=== PATIENT | male | born 1965 | race Caucasian/White ===

== ENCOUNTER 2020-11-29 10:00 | Outpatient (REF) | payer OTHER, SELFPAY | END 2020-11-29 10:01 | disposition home or self-care (01) | LOC: HO.LAB 10:00 | PROVIDERS: Visit Provider Internal Medicine | DX: Z20.828 Contact with and (suspected) exposure to other viral communicable diseases (principal) | CPT/HCPCS: 36415; C9803; U0003 ==

== ENCOUNTER 2023-03-03 16:46 | Emergency (ER) | payer OTHER, SELFPAY ==
--- NOTE | ~2023-03-03 | CT_ITS ---
EXAMINATION: CT CHEST, ABDOMEN AND PELVIS WITHOUT CONTRAST CLINICAL INFORMATION: Trauma. COMPARISON: None. TECHNIQUE: Multidetector volumetric CT imaging of the chest, abdomen and pelvis was obtained without oral or intravenous contrast. Coronal and sagittal reformatted images are performed at CT scanner [This CT examination was performed using dose optimization techniques as appropriate, variously including the following: *Automated exposure control *Adjustment of mA and/or kV according to patient size (this includes techniques or standardized protocols for targeted exams where dose is matched to indication/reason for exam; i.e. extremities or head) *Use of iterative reconstruction technique] DLP: 7.31+183.89+368.22 mGy-cm. FINDINGS: CT CHEST: Lungs: Marked centrilobular and mild paraseptal emphysematous change of lungs. No acute airspace disease. No interstitial lung disease. No suspicious lung nodule. Mediastinum: No mediastinal hematoma or fluid collection. No pericardial effusion. Heart size is normal. Small volume of coronary calcification. Small volume of calcifications of thoracic aorta and arch. No aneurysm of aorta. No mediastinal mass or significant lymphadenopathy. Thyroid is unremarkable Pleura: There is no pleural effusion. No pleural mass or thickening. Axilla: No lymphadenopathy. CT ABDOMEN AND PELVIS: Liver, Gallbladder and Biliary Tree: Mild low-attenuation of liver parenchyma suggesting fatty change. No focal liver lesion or intrahepatic bile duct dilatation. The gallbladder is unremarkable with no evidence of radiopaque gallstones, gallbladder wall thickening, or obvious pericholecystic inflammatory changes. Pancreas: No acute change of the pancreas. No mass. No pancreatic duct dilatation. Spleen: Spleen normal in size and contour. No focal lesion. Adrenal Glands: Adrenal glands are normal in size. No focal mass. Kidneys and Ureters: The kidneys are normal in size, shape, and attenuation. No hydronephrosis, hydroureter, or calculi seen. No perinephric stranding. Bladder: Unremarkable. Gastrointestinal Tract: The small and large bowel are unremarkable. The appendix is unremarkable. Mesentery: No focal inflammation. No free fluid. No free air. Abdominal Wall: No significant hernia is appreciated. Lymph Nodes: Normal. Vascular: Unremarkable. Pelvic Viscera: Unremarkable. Osseous Structures: No acute osseous abnormality. Mild multilevel degenerative spondylosis of the spine CT/CT abdomen pelvis wo IV con IMPRESSION: CT CHEST: No acute abnormality. Emphysematous change of lungs. CT ABDOMEN PELVIS: No acute abnormality the abdomen or pelvis.
--- NOTE | ~2023-03-03 | CT_ITS ---
EXAMINATION: CT HEAD WITHOUT CONTRAST CT CERVICAL SPINE WITHOUT CONTRAST CLINICAL INFORMATION: Altered mental status. Neck pain. Fall. EtOH. COMPARISON: None available. TECHNIQUE: Contiguous axial imaging was performed from the skull base to vertex without intravenous administration of contrast. Contiguous axial imaging was performed from the upper chest through the skull base without intravenous administration of contrast. Coronal and sagittal reformats were obtained at the acquisition workstation. This CT examination was performed using dose optimization techniques as appropriate, variously including the following: *Automated exposure control. *Adjustment of mA and/or kV according to patient size (this includes techniques or standardized protocols for targeted exams where dose is matched to indication/reason for exam; i.e. extremities or head). *Use of iterative reconstruction technique. DLP: 1083 mGy-cm FINDINGS: Head: There is no evidence of acute intracranial hemorrhage or edematous territorial infarction. Friend-white matter differentiation is preserved. There is no abnormal attenuation within the brain parenchyma. The ventricles are normal in morphology and size. No evidence for obstructive hydrocephalus. No abnormal mass effect or midline shift. No extra-axial fluid collections. Potential minimally displaced right nasal bone fracture. No additional acute soft tissue or osseous abnormalities. There is a 2.3 cm inclusion cyst along the posterior skull. Mild mucosal thickening of the paranasal sinuses. The mastoid air cells and middle ear cavities are clear. Cervical Spine: The atlantooccipital and atlantoaxial articulations remain well aligned. Straightening of the normal cervical lordosis. Otherwise, there is anatomic alignment of the vertebral bodies and posterior elements. No evidence of acute fracture or subluxation. The vertebral body heights are maintained. Moderate degenerative disc disease from C3-C7. Mild degenerative disc disease at C7-T1. Facet and uncovertebral joint arthropathy leads osseous encroachment on the neural foramina from C3-T1. There is no prevertebral soft tissue swelling. The thyroid gland and remaining cervical soft tissues are within normal limits. Moderate centrilobular emphysema visualized in the lung apices. CT/CT cervical spine wo IV con IMPRESSION: 1. No evidence of acute intracranial hemorrhage or edematous territorial infarction. 2. No evidence of acute fracture or traumatic subluxation of the cervical spine. 3. Potential minimally displaced right nasal bone fracture. Recommend correlation with point tenderness. 4. Moderate multilevel degenerative spondyloarthropathy of the cervical spine. 5. Emphysema.
[2023-03-03 16:49] VITALS: BP 149/105; PULSE 143; RESP 18; O2SAT 94; BMI 19.3
[2023-03-03 16:56] VITALS: TEMP 36.8
[2023-03-03 17:07] LABS: MANUAL DIFF FLAG NO
--- NOTE | 2023-03-03 17:07 | PC.NURSE ---
pt reporting SI, drink self to . Pt cooperative with care at this time
[2023-03-03 17:08] LABS: Basophils Absolute Auto 0.1 X10*3/uL (0.0-0.2); Basophils Percent Auto 0.5 % (0-2); Eosinophils Absolute Auto 0.1 X10*3/uL (0.0-0.4); Eosinophils Percent Auto 0.6 % (0-4); Hematocrit 40.9 % (42.0-52.0); Hemoglobin 14.3 g/dl (14.0-18.0); Imm Gran Abs Auto 0.02 X10*3/uL (0.00-0.03); Imm Gran Pct Auto 0.2 % (0.0-0.4); Mean Corpuscular Hemoglobin 31.8 pg (27.0-33.0); Mean Corpuscular Volume 90.9 fL (80.0-98.0); Monocytes Absolute Auto 0.6 X10*3/uL (0.1-1.2); Monocytes Percent Auto 5.9 % (2-11); Neutrophils Absolute Auto 5.9 x10*3/uL (2.0-8.3); Neutrophils Percent Auto 61.8 % (45-73); Platelet Count 270 X10*3/uL (160-400); Red Cell Distribution Width 12.8 % (11.0-16.0); White Blood Count 9.5 X10*3/uL (4.8-10.8)
--- NOTE | 2023-03-03 17:20 | ED_ITS ---
HPI - Alcohol General Chief Complaint: ETOH/Substance Use Stated Complaint: ETOH Time Seen by Provider: 03/03/23 16:48 Source: patient Mode of arrival: ambulatory Limitations: other (Patient extremely intoxicated) History of Present Illness HPI narrative: This is a 57-year-old male presenting to the emergency department with acute alcohol intoxication patient was brought in by his manager distribution center who found patient at home very intoxicated. According to report obtained from a friend patient was recently in detox, patient states he was drinking a lot today and he states he was drinking vodka at 1 point he mention to nursing staff he drink a pt. He is screaming I want to , not answering any questions appropriately. He appears altered. Related Data Previous Rx's Medication Instructions Recorded oxycodone 5 mg tablet 5 mg PO ONCE PRN pain 7 days #7 04/01/22 tabs cephalexin 500 mg capsule 500 mg PO TID #30 caps 06/11/22 meloxicam 15 mg tablet 15 mg PO DAILY #14 tabs 06/11/22 Allergies Allergy/AdvReac Type Severity Reaction Status Date / Time No Known Allergies Allergy Verified 06/11/22 15:49 Review of Systems Review of Systems: Yes Unobtainable due to mental status PMFSH Past Medical History Attestation statement: The following information was validated with the patient. Source: old records reviewed and nursing notes reviewed Social History Social History Alcohol intake: current Alcohol intake frequency: 3 or more drinks per day Alcohol type: hard liquor Smoked in Last 30 Days: Yes Use of substances other than those prescribed or required for medical reasons: Yes Substance Use Type: Crack/Cocaine and Heroin Physical Exam ED Vital Signs: Vital Signs - 24 hr 03/03/23 16:49 03/03/23 16:56 03/03/23 17:43 Temperature 98.3 F 98.0 F Pulse Rate 143 H 120 H Respiratory Rate 18 20 Blood Pressure 149/105 H 128/82 Pulse Oximetry 94 95 Oxygen Delivery Method Room Air Room Air BMI result Body Mass Index 19.3 Vital signs significant for hypertension and tachycardia likely secondary to agitation and/or intoxication Appearance: Patient awake, moving all extremities. Not oriented to person, place time or situation No acute distress.? Head: Normocephalic, atraumatic, no step-offs or deformities Eyes: Pupils equal, round and reactive to light.? ENT: Pharynx normal.? Neck: Normal inspection.? Neck supple.? CVS: Normal heart rate and rhythm.? Pulses normal.? Respiratory: No respiratory distress.? Breath sounds normal.? Abdomen: Soft and nontender.? Skin: Skin warm and dry.? Normal skin color.? Normal skin turgor.? Extremities: No lower extremity edema.? No calf ttp. 5/5 strength to bilateral upper and lower extremities Neuro: Patient awake, moving all extremities. Not oriented to person, place time or situation . Due to patient not following commands and unable to participate neurological exam a full neurological exam was not done at this time. Course Reevaluation(s) Reevaluation #1: CBC appears to be around normal limits. Chemistry without acute findings requiring intervention BUN is noted to be elevated 29 likely secondary to poor p.o. intake. Bilirubin 1.1 however no tenderness to palpation of abdomen. AST and ALT elevated, likely secondary to chronic alcohol abuse. Salicylates, acetaminophen negative. Ethanol level 432 consistent with acute alcohol intoxication. Patient is noted to be negative for COVID-19. CT of chest no acute abnormality. At emphysematous changes of lungs, no acute abnormality in abdomen or pelvis. CT of head with no evidence of acute intracranial hemorrhage or edematous start oral infarction. No evidence of acute fracture or traumatic subluxation of the cervical spine. Possible minimally displaced right nasal bone fracture, on exam there is no point tenderness, low suspicion for this. Emphysema noted. Patient continues to scream that he is suicidal sitter at the bedside. At this time patient to be placed into observation to allow more time to be evaluated by behavioral health team. At time observation was started patient common cooperative no acute distress will continue to monitor Time: 19:04 Medical Decision Making Medical Decision Making [facility] Narrative: 1700 57-year-old male presents for evaluation of alcohol intoxication screaming at that he suicidal, very intoxicated unable to provide me with history or review of systems. Was brought in by manager distribution center Physical exam patient smells like alcohol, moving erratically, awake, moving all extremities. Not oriented to person, place time or situation. Rapid rate regular rhythm ranging between 120 and 130. Lungs clear. Abdomen soft nontender nondistended. No reported trauma however unclear patient fell. Will rule out polysubstance abuse, electrolyte abnormalities, intracranial abnormalities. However, I suspect that this is likely alcohol intoxication. Plan at this time labs, imaging, urine, ethanol level. Differential Diagnosis Differential Diagnoses: The differential diagnosis associated with the pres entation includes Will rule out polysubstance abuse, electrolyte abnormalities, intracranial abnormalities. However, I suspect that this is likely alcohol intoxication. Admission/Observation Consideration of admission/observation: Escalation of care including admission/observation considered Lab Data MDM Lab Attestation statement: I reviewed the patient's lab results. 03/03/23 17:03 03/03/23 17:03 Labs: Lab Results 03/03/23 03/03/23 03/03/23 Range/Units 17:03 17:03 17:03 WBC 9.5 (4.8-10.8) X10*3/uL RBC 4.50 L (4.60-5.80) X10*6/uL Hgb 14.3 (14.0-18.0) g/dl Hct 40.9 L (42.0-52.0) % MCV 90.9 (80.0-98.0) fL MCH 31.8 (27.0-33.0) pg MCHC 35.0 (31.0-36.0) g/dl RDW 12.8 (11.0-16.0) % Plt Count 270 (160-400) X10*3/uL MPV 9.0 L (9.4-12.4) fL Immature Gran % (Auto) 0.2 (0.0-0.4) % Neut % (Auto) 61.8 (45-73) % Lymph % (Auto) 31.0 (20-40) % Toombs % (Auto) 5.9 (2-11) % Eos % (Auto) 0.6 (0-4) % Baso % (Auto) 0.5 (0-2) % Lymph # (Auto) 3.0 (1.2-4.9) X10*3/uL [place]ombs # (Auto) 0.6 (0.1-1.2) X10*3/uL Eos # (Auto) 0.1 (0.0-0.4) X10*3/uL Baso # (Auto) 0.1 (0.0-0.2) X10*3/uL Abs Immat Gran (auto) 0.02 (0.00-0.03) X10*3/uL Absolute Neuts (auto) 5.9 (2.0-8.3) x10*3/uL Absolute Nucleated RBC 0.000 (0.0-0.012) X10*3/uL Nucleated RBC % (auto) 0.0 (0.0-0.2) /100WBC Sodium 143 (135-145) mmol/L Potassium 4.2 (3.3-5.1) mmol/L Chloride 104 (96-108) mmol/L Carbon Dioxide 24 (22-29) mmol/L Anion Gap 19 (12-20) BUN 29 H (9-16) mg/dL Creatinine 0.86 (0.5-1.4) mg/dL Estim Creat Clear Calc 86.2 Estimated GFR > 60 Random Glucose 96 (60-115) mg/dL Calcium 9.0 (8.4-10.2) mg/dL Total Bilirubin 1.1 H (0.0-1.0) mg/dL Direct Bilirubin 0.3 (0.0-0.5) mg/dL AST 47 H (5-37) U/L ALT 65 H (0-40) U/L Alkaline Phosphatase 81 (39-117) U/L Total Protein 6.8 (6.5-8.0) g/dL Albumin 4.1 (3.5-5.0) g/dL Salicylates < 5.0 L (15-30) mg/dL Acetaminophen < 17 (<30) mcg/mL Ethyl Alcohol 432 H* mg/dL COVID-19 (RABIA) Negative (Negative) COVID-19 Clin Com See Note Independent Interpretation I performed an independent interpretation of an: CT Scan Radiology Impression Discussion of test interpretation with radiology: I have reviewed the radiologist's reading. Core Measures AMI core measures followed: Yes Measure exclusions: not indicated Critical Care Time Critical Care Time Critical Care Time: No Discharge Plan Discharge Clinical Impression: Alcoholic intoxication, Suicide ideation Patient Disposition: Still a Patient Instructions: Alcohol Intoxication (ED), Help Prevent Suicide (ED) Additional Instructions: Take your medications as prescribed. If you were prescribed antibiotics today, it is important that you take your medication to their entirety, do not skip any doses, do not finish them early. Follow-up with your primary care provider this week. Return to the emergency department with new or worsening symptoms. Such as fevers, chills, chest pain, shortness of breath, nausea, vomiting, dizziness, he adache, vision changes, lethargy In case of emergency call 911 ?CT/CT chest wo IV con IMPRESSION: CT CHEST: No acute abnormality. Emphysematous change of lungs. ? CT ABDOMEN PELVIS: No acute abnormality the abdomen or pelvis. CT/CT cervical spine wo IV con IMPRESSION: 1.? No evidence of acute intracranial hemorrhage or edematous territorial infarction. 2.? No evidence of acute fracture or traumatic subluxation of the cervical spine. 3.? Potential minimally displaced right nasal bone fracture. Recommend correlation with point tenderness. 4.? Moderate multilevel degenerative spondyloarthropathy of the cervical spine. 5.? Emphysema. ? Prescriptions: No Action oxycodone 5 mg tablet 5 mg PO ONCE PRN (Reason: pain) 7 Days Qty: 7 0RF cephalexin 500 mg capsule 500 mg PO TID Qty: 30 0RF meloxicam 15 mg tablet 15 mg PO DAILY Qty: 14 0RF Referrals: [facility] [Provider Group] - 2 days Physician,Unknown J [Primary Care Provider] - 2 days
[2023-03-03 17:29] LABS: COVID-19 Test Negative (Negative); IDNOW Serial# BCCEAD1C
[2023-03-03 17:35] LABS: Acetaminophen LAB < 17 mcg/mL (<30); Alanine Aminotransferase 65 U/L (0-40); Albumin Level 4.1 g/dL (3.5-5.0); Alkaline Phosphatase 81 U/L (39-117); Anion Gap 19 (12-20); Aspartate Amino Transferase 47 U/L (5-37); Bilirubin Direct 0.3 mg/dL (0.0-0.5); Bilirubin Total 1.1 mg/dL (0.0-1.0); Blood Urea Nitrogen 29 mg/dL (9-16); Carbon Dioxide 24 mmol/L (22-29); Chloride 104 mmol/L (96-108); Creatinine Clr Calc Pharmacy 86.2; Estimated Glomerular Filt Rate > 60; Ethanol 432 mg/dL; Glucose Random 96 mg/dL (60-115); Potassium 4.2 mmol/L (3.3-5.1); Salicylate < 5.0 mg/dL (15-30); Sodium 143 mmol/L (135-145); Total Protein 6.8 g/dL (6.5-8.0)
[2023-03-03 17:43] VITALS: BP 128/82; PULSE 120; RESP 20; TEMP 36.7; O2SAT 95
--- NOTE | 2023-03-03 17:45 | PC.NURSE ---
patient is resting face down on stretcher, respirations even and unlabored, no apparent distress, alert to name and birthday at this time, denies pain. 1:[address] for safety
[2023-03-03 19:46] LABS: Amphetamine Screen Urine Not Detected (Not Detect); Barbiturates, Urine Not Detected (Not Detect); Benzodiazepines Screen Urine Not Detected (Not Detect); Cannabinoid Screen Urine POSITIVE (Not Detect); Cocaine Screen Urine Not Detected (Not Detect); Fentanyl, urine Not Detected (Not Detect); Opiate Screen Urine Not Detected (Not Detect); Phencyclidine Screen Urine Not Detected (Not Detect)
[2023-03-03] MEDS: LORazepam 1 MG TABLET PO (20:03)
[2023-03-03] MEDS: 0.9 % Sodium Chloride 1,000 ML 999 ML IV (20:04)
[2023-03-03 20:55] VITALS: BP 123/85; PULSE 103; RESP 16; TEMP 36.6; O2SAT 94
[2023-03-03] MEDS: LORazepam 2 MG/ML VIAL 1 MG IVPUSH (22:10)
[2023-03-03] MEDS: Acetaminophen 325 MG TABLET 650 MG PO (22:10)
[2023-03-03 22:42] VITALS: BP 111/78; PULSE 114; RESP 18; TEMP 36.6; O2SAT 96
[2023-03-03] MEDS: Nicotine 14 MG PATCH.TD24 TRANSDERMA (22:57)
[2023-03-03] MEDS: diphenhydrAMINE HCL 25 MG CAPSULE 50 MG PO (23:14)
[2023-03-04 00:09] VITALS: BP 99/61; PULSE 104; RESP 15; TEMP 36.8; O2SAT 95
[2023-03-04 02:11] VITALS: BP 100/61; PULSE 100; RESP 15; O2SAT 98
[2023-03-04 03:45] VITALS: BP 102/66; PULSE 113; RESP 16; O2SAT 96
--- NOTE | 2023-03-04 04:25 | PC.NURSE ---
Patient is alert and oriented to self and place. Patient medicated with Tylenol, Lorazepam, Benadryl for headache and CIWA 11. Patient continued to complain of headache and being able to relax. Provider notified, ordered Haldol PO. Haldol not administered d/t patient fell asleep. 1:[address], no s/s of distress noted.
[2023-03-04 05:52] VITALS: BP 102/65; PULSE 106; RESP 15; O2SAT 97
--- NOTE | 2023-03-04 06:16 | PC.NURSE ---
Patient removed IV Line.
--- NOTE | 2023-03-04 07:28 | PC.NURSE ---
pt asleep at this time, 1:1 sitter at bedside
[2023-03-04 07:44] VITALS: RESP 18
--- NOTE | 2023-03-04 09:00 | PC.NURSE ---
preparation room manager [place] [phone]
--- NOTE | 2023-03-04 09:29 | MHC.RECOVRN ---
Spoke with intake at [facility], pt had a bed for 0730, however needed clearance prior to presenting. Bed is not being held for pt.
[2023-03-04 09:32] VITALS: BP 110/71; PULSE 104; RESP 20; O2SAT 95
--- NOTE | 2023-03-04 10:22 | MHC.CARE ---
CARE Team internet marketing analyst met with pt at bedside for a risk assessment. Pt presents as alert, orienated and engaged. Pt was observed lying down and remained that way throughout the assessment. Pt reports to be unable to identify the reason he's here in the ED, but he does recall drinking approximately 1 pint of vodka yesterday. Pt states he remembers having SI and making statements. He reports his SI is only in the context of alcohol intoxication and currently does not endorse SI. Pt reports to not endorse HI/AVH and states he feels safe to be discharged home. Pt was educated on crisis services if needed and provided crisis number in discharge plan. Pt verbalizes understanding of how to utilize crisis services. Plan for recovery team to follow up with Pt as he initially requested detox services.
--- NOTE | 2023-03-04 11:56 | MHC.RECOVRN ---
Met with pt in [facility] after cleared by CARE Team. Pt laying on stretcher, awake, alert, easily engages in conversation, does not appear to be in withdrawal. Pt reports drinking 2 1/2 pints vodka yesterday after not consuming alcohol for about a week. Pt reports 8 year period in recovery with beginning of COVID coinciding with reoccurrence. Pt has been drinking intermittently, does not feel that he needs ATS, denies reporting that he was going to [facility]. Pt regularly attends AA and has a sponsor. Pt states I'm feeling better and ready to go home. Pt provided with recovery resources, denies questions or concerns for t/w. RN aware.
--- NOTE | 2023-03-04 19:19 | MHC.CARE ---
CARE TEAM met with patient in behavioral pod for risk assessment secondary to requesting to be discharged. He was initially referred due to seeking detox a admission. He reported he initially arrived from [facility] due to being under the influence. He denied suicidal and homicidal ideation, plan, or intent. He reported he relapsed on alcohol after eight years of sobriety and has been on a eight day binge. Patient was offered assistance with detox placement however patient declined stating he can seek treatment on his own. Patient was observed meeting with [employer] and was discharged from ED.
== END 2023-03-04 11:36 | disposition still patient (30) ==
PROVIDERS: Nurse Practitioner Family; Emergency Provider Emergency Medicine
DX: F10.129 Alcohol abuse with intoxication, unspecified (principal); Y90.8 Blood alcohol level of 240 mg/100 ml or more; R45.851 Suicidal ideations; F14.10 Cocaine abuse, uncomplicated; R51.9 Headache, unspecified; R10.2 Pelvic and perineal pain; M54.6 Pain in thoracic spine; M54.2 Cervicalgia; Z20.822 Contact with and (suspected) exposure to COVID-19; Z20.828 Contact with and (suspected) exposure to other viral communicable diseases; Z79.899 Other long term (current) drug therapy
CPT/HCPCS: 36415; 70450; 71250; 72125; 74176; 80048; 80076; 80143; 80179; 80307; 82077; 85025; 87635; 96361; 96374; 99285; J2060

== ENCOUNTER 2023-03-04 16:35 | Emergency (ER) | payer OTHER, SELFPAY ==
[2023-03-04 16:41] VITALS: BP 130/80; BP 140/78; PULSE 140; PULSE 98; RESP 18; TEMP 37.2; O2SAT 95; O2SAT 98; BMI 20.3
--- NOTE | 2023-03-04 16:49 | ED_ITS ---
HPI - General Adult General Chief complaint: Psychiatric Symptoms Stated complaint: SI (no plan), seeking detox per EMS Source: patient and EMS Mode of arrival: EMS Limitations: no limitations History of Present Illness HPI narrative: This is a 57-year-old male with history of alcohol abuse disorder presenting to the emergency department from your of a stat, according to patient there was something going on there so he left. Patient arrived there today. According to EMS patient made vague SI statements with no plan however, patient denies any suicidal or homicidal ideation. EMS tells me that patient eloped from your [place] and is now again requesting detox. Patient reports he drink today. He tells me he does not really know why he is here tells me they just picked him up from [facility] [place]. Patient denies drug use. Denies visual, auditory and tactile hallucinations. He tells me that he really wants detox so he would like to go somewhere. Denies any medical complaints. Related Data Home Medications Medication Instructions Recorded Confirmed No Known Home Meds 03/04/23 03/04/23 Allergies Allergy/AdvReac Type Severity Reaction Status Date / Time No Known Allergies Allergy Verified 06/11/22 15:49 Review of Systems Review of Systems: Constitutional : No Weight loss, No Fever, No Chills, No Fatigue, No Malaise ENT/Mouth : No sore throat, No Rhinorrhea Eyes: No Eye Pain, No Swelling, No Redness Cardiovascular : No Chest Pain, No SOB, No Dyspnea on Exertion, No Orthopnea, No Edema, No Palpitations Respiratory : No Cough, No Sputum, No Wheezing Gastrointestinal : No Nausea, No Vomiting, No Diarrhea, No Constipation, No abdominal Pain, No Hematochezia, No Melena Genitourinary : No Dysuria, No Urinary Frequency, No Hematuria, Musculoskeletal : No joint pain, No Myalgias, No Joint Swelling Skin : No Skin Lesions, No rash Neuro : No Weakness, No Numbness, No Dizziness, No Headache Psych : No Anxiety/Panic, No Depression All other systems reviewed and are negative Yes all other systems are reviewed and are negative [facility] Past Medical History Attestation statement: The following information was validated with the patient. Source: old records reviewed and nursing notes reviewed Social History Social History Alcohol intake: current Alcohol intake frequency: 3 or more drinks per day Alcohol type: hard liquor Substance Use Type: Crack/Cocaine and Heroin Advance Directives: No Advance Directives Information Provided: No Physical Exam ED Vital Signs: Vital Signs - 24 hr 03/04/23 16:41 03/04/23 18:16 Temperature 99 F Pulse Rate 140 H 119 H Respiratory Rate 18 18 Blood Pressure 130/80 Pulse Oximetry 95 BMI result Body Mass Index 20.3 vss Appearance: Alert.? Oriented X3.? No acute distress.? Head: Normocephalic, atraumatic, no step-offs or deformities Eyes: Pupils equal, round and reactive to light.?? Neck: Normal inspection.? Neck supple.? CVS: Normal heart rate and rhythm.? Pulses normal.? Respiratory: No respiratory distress.? Breath sounds normal.? Abdomen: Soft and nontender.? Skin: Skin warm and dry.? Normal skin color.? Normal skin turgor.? Extremities: No lower extremity edema.? No calf ttp. 5/5 strength to bilateral upper and lower extremities Neuro: Oriented X 3.? No motor deficit.? No sensory deficit. CN 2-12 intact . Ambulating with steady gait normal coordination. Course Reevaluation(s) Reevaluation #1: Patient was offered detox, he was given a list and he states he will call himself to try to get himself into a detox. Patient will appearing will be discharged at this time he will follow-up with his primary care provider, and he will seek detox options on his own. Educated patient on diagnosis and treatment plan, answered all question, patient verbalizes understanding. At this time patient will be discharged home, advised to return with new or worsening symptoms. Educated on worrisome signs and symptoms and when to return. At this time I feel comfortable discharge home. Time: 18:15 Reevaluation #2: Patient's heart rate improved he is between 100 119, upon chart review it seems as though patient is always tachycardic he also does appear slightly anxious and is pacing around when heart rate was checked. Patient trying to find a sober ride however he is ambulating with steady gait, alert and oriented x4, willing to walk. Time: 18:19 Medical Decision Making Medical Decision Making [facility] Narrative: 181 57-year-old male presents seeking detox after eloping from [facility] Physical examination benign. Patient likely seeking detox due to alcohol abuse. No signs of suicidal, homicidal ideation here denies it to me and nursing staff. Patient alert and oriented x4. No signs of opiate withdrawal. Patient was just seen here unlikely metabolic derangements or electrolyte abnormalities. Will have patient seen by organ recovery coordinator. Labs were ordered by nursing.. No indication for care team evaluation patient is not suicidal, homicidal, no signs of schizophrenia, bipolar disorder, hallucinations, or psychiatric emergencies. Will have him seen by organ recovery coordinator instead Differential Diagnosis Differential Diagnoses: The differential diagnosis associated with the presentation includes Patient likely seeking detox due to alcohol abuse. No signs of suicidal, homicidal ideation here denies it to me and nursing staff. Patient alert and oriented x4. No signs of opiate withdrawal. Patient was just seen here unlikely metabolic derangements or electrolyte abnormalities. Admission/Observation Consideration of admission/observation: Escalation of care including admission/observation considered Unlikely Lab Data 03/04/23 17:07 03/04/23 17:07 Labs: Lab Results 03/04/23 03/04/23 03/04/23 Range/Units 16:54 17:07 17:07 WBC 7.9 (4.8-10.8) X10*3/uL RBC 3.98 L (4.60-5.80) X10*6/uL Hgb 12.8 L (14.0-18.0) g/dl Hct 36.5 L (42.0-52.0) % MCV 91.7 (80.0-98.0) fL MCH 32.2 (27.0-33.0) pg MCHC 35.1 (31.0-36.0) g/dl RDW 12.6 (11.0-16.0) % Plt Count 211 (160-400) X10*3/uL MPV 9.1 L (9.4-12.4) fL Immature Gran % (Auto) 0.3 (0.0-0.4) % Neut % (Auto) 70.3 (45-73) % Lymph % (Auto) 23.8 (20-40) % [place] % (Auto) 4.9 (2-11) % Eos % (Auto) 0.4 (0-4) % Baso % (Auto) 0.3 (0-2) % Lymph # (Auto) 1.9 (1.2-4.9) X10*3/uL [place] # (Auto) 0.4 (0.1-1.2) X10*3/uL Eos # (Auto) 0.0 (0.0-0.4) X10*3/uL Baso # (Auto) 0.0 (0.0-0.2) X10*3/uL Abs Immat Gran (auto) 0.02 (0.00-0.03) X10*3/uL Absolute Neuts (auto) 5.6 (2.0-8.3) x10*3/uL Absolute Nucleated RBC 0.000 (0.0-0.012) X10*3/uL Nucleated RBC % (auto) 0.0 (0.0-0.2) /100WBC Sodium 142 (135-145) mmol/L Potassium 4.0 (3.3-5.1) mmol/L Chloride 104 (96-108) mmol/L Carbon Dioxide 25 (22-29) mmol/L Anion Gap 17 (12-20) BUN 27 H (9-16) mg/dL Creatinine 0.98 (0.5-1.4) mg/dL Estim Creat Clear Calc 81.9 Estimated GFR > 60 Random Glucose 229 H (60-115) mg/dL Calcium 8.9 (8.4-10.2) mg/dL Total Bilirubin 1.1 H (0.0-1.0) mg/dL AST 42 H (5-37) U/L ALT 55 H (0-40) U/L Alkaline Phosphatase 77 (39-117) U/L Total Protein 6.1 L (6.5-8.0) g/dL Albumin 3.8 (3.5-5.0) g/dL Urine Opiates Screen (Not Detect) Urine Fentanyl Screen (Not Detect) Ur Barbiturates Screen (Not Detect) Ur Phencyclidine Scrn (Not Detect) Ur Amphetamines Screen (Not Detect) U Benzodiazepines Scrn (Not Detect) Urine Cocaine Screen (Not Detect) U Marijuana (THC) Screen (Not Detect) Ethyl Alcohol 190 mg/dL COVID-19 (RABIA) Negative (Negative) COVID-19 Clin Com See Note 03/04/23 Range/Units 17:31 WBC (4.8-10.8) X10*3/uL RBC (4.60-5.80) X10*6/uL Hgb (14.0-18.0) g/dl Hct (42.0-52.0) % MCV (80.0-98.0) fL MCH (27.0-33.0) pg MCHC (31.0-36.0) g/dl RDW (11.0-16.0) % Plt Count (160-400) X10*3/uL MPV (9.4-12.4) fL Immature Gran % (Auto) (0.0-0.4) % Neut % (Auto) (45-73) % Lymph % (Auto) (20-40) % [place] % (Auto) (2-11) % Eos % (Auto) (0-4) % Baso % (Auto) (0-2) % Lymph # (Auto) (1.2-4.9) X10*3/uL [place] # (Auto) (0.1-1.2) X10*3/uL Eos # (Auto) (0.0-0.4) X10*3/uL Baso # (Auto) (0.0-0.2) X10*3/uL Abs Immat Gran (auto) (0.00-0.03) X10*3/uL Absolute Neuts (auto) (2.0-8.3) x10*3/uL Absolute Nucleated RBC (0.0-0.012) X10*3/uL Nucleated RBC % (auto) (0.0-0.2) /100WBC Sodium (135-145) mmol/L Potassium (3.3-5.1) mmol/L Chloride (96-108) mmol/L Carbon Dioxide (22-29) mmol/L Anion Gap (12-20) BUN (9-16) mg/dL Creatinine (0.5-1.4) mg/dL Estim Creat Clear Calc Estimated GFR Random Glucose (60-115) mg/dL Calcium (8.4-10.2) mg/dL Total Bilirubin (0.0-1.0) mg/dL AST (5-37) U/L ALT (0-40) U/L Alkaline Phosphatase (39-117) U/L Total Protein (6.5-8.0) g/dL Albumin (3.5-5.0) g/dL Urine Opiates Screen Not Detected (Not Detect) Urine Fentanyl Screen Not Detected (Not Detect) Ur Barbiturates Screen Not Detected (Not Detect) Ur Phencyclidine Scrn Not Detected (Not Detect) Ur Amphetamines Screen Not Detected (Not Detect) U Benzodiazepines Scrn Not Detected (Not Detect) Urine Cocaine Screen Not Detected (Not Detect) U Marijuana (THC) Screen POSITIVE H (Not Detect) Ethyl Alcohol mg/dL COVID-19 (RABIA) (Negative) COVID-19 Clin Com Core Measures AMI core measures followed: Yes Measure exclusions: not indicated Discharge Plan Discharge Clinical Impression: Alcohol use disorder Patient Disposition: Home, Self-Care Instructions: Alcohol Intoxication (ED), Abuse of Alcohol (ED) Additional Instructions: Take your medications as prescribed. If you were prescribed antibiotics today, it is important that you take your medication to their entirety, do not skip any doses, do not finish them early. Follow-up with your primary care provider this week. Return to the emergency department with new or worsening symptoms. Such as fevers, chills, chest pain, shortness of breath, nausea, vomiting, dizziness, headache, vision changes, lethargy, suicidal or homicidal ideation In case of emergency call 911 Please call detox centers, you were provided with a list. Prescriptions: No Action No Known Home Meds Rx Instructions: Patient states he is not taking his prescription meds. Referrals: Physician,Rica J [Primary Care Provider] - 3 days Interventions: [place]-Suicide Risk Severity Scale Last Done: 03/04/23 16:44
[2023-03-04 17:15] LABS: MANUAL DIFF FLAG NO
[2023-03-04 17:21] LABS: Basophils Percent Auto 0.3 % (0-2); Eosinophils Percent Auto 0.4 % (0-4); Hematocrit 36.5 % (42.0-52.0); Hemoglobin 12.8 g/dl (14.0-18.0); Imm Gran Abs Auto 0.02 X10*3/uL (0.00-0.03); Imm Gran Pct Auto 0.3 % (0.0-0.4); Lymphocytes Absolute Auto 1.9 X10*3/uL (1.2-4.9); Lymphocytes Percent Auto 23.8 % (20-40); Mean Corpuscular HGB Conc 35.1 g/dl (31.0-36.0); Mean Corpuscular Hemoglobin 32.2 pg (27.0-33.0); Mean Corpuscular Volume 91.7 fL (80.0-98.0); Mean Platelet Volume 9.1 fL (9.4-12.4); Monocytes Absolute Auto 0.4 X10*3/uL (0.1-1.2); Monocytes Percent Auto 4.9 % (2-11); Neutrophils Absolute Auto 5.6 x10*3/uL (2.0-8.3); Neutrophils Percent Auto 70.3 % (45-73); Platelet Count 211 X10*3/uL (160-400); Red Blood Count 3.98 X10*6/uL (4.60-5.80); Red Cell Distribution Width 12.6 % (11.0-16.0); White Blood Count 7.9 X10*3/uL (4.8-10.8)
[2023-03-04 17:24] LABS: COVID-19 Test Negative (Negative); IDNOW Serial# 08D9AD1C
[2023-03-04 17:31] LABS: Alanine Aminotransferase 55 U/L (0-40); Albumin Level 3.8 g/dL (3.5-5.0); Alkaline Phosphatase 77 U/L (39-117); Anion Gap 17 (12-20); Aspartate Amino Transferase 42 U/L (5-37); Bilirubin Total 1.1 mg/dL (0.0-1.0); Blood Urea Nitrogen 27 mg/dL (9-16); Calcium 8.9 mg/dL (8.4-10.2); Carbon Dioxide 25 mmol/L (22-29); Chloride 104 mmol/L (96-108); Creatinine Clr Calc Pharmacy 81.9; Estimated Glomerular Filt Rate > 60; Ethanol 190 mg/dL; Glucose Random 229 mg/dL (60-115); Sodium 142 mmol/L (135-145); Total Protein 6.1 g/dL (6.5-8.0)
[2023-03-04 17:51] LABS: Amphetamine Screen Urine Not Detected (Not Detect); Barbiturates, Urine Not Detected (Not Detect); Benzodiazepines Screen Urine Not Detected (Not Detect); Cannabinoid Screen Urine POSITIVE (Not Detect); Cocaine Screen Urine Not Detected (Not Detect); Fentanyl, urine Not Detected (Not Detect); Opiate Screen Urine Not Detected (Not Detect); Phencyclidine Screen Urine Not Detected (Not Detect)
--- NOTE | 2023-03-04 18:12 | PC.NURSE ---
Pt denies si and hi. Spoke with baseball coach and was given information regarding detox.
[2023-03-04 18:16] VITALS: PULSE 119; RESP 18
--- NOTE | 2023-03-04 18:22 | PC.NURSE ---
After speaking with lacrosse coach patient still denies si and hi and refused a crisis eval from care team.
[2023-03-04] MEDS: LORazepam 1 MG TABLET PO (18:33)
== END 2023-03-04 18:39 | disposition home or self-care (01) ==
PROVIDERS: Physician Assistant; Emergency Provider Emergency Medicine
DX: F10.10 Alcohol abuse, uncomplicated (principal); Y90.6 Blood alcohol level of 120-199 mg/100 ml; R00.0 Tachycardia, unspecified; Z20.822 Contact with and (suspected) exposure to COVID-19; Z91.148 Patient's other noncompliance with medication regimen for other reason
CPT/HCPCS: 80053; 80307; 81001; 82077; 85025; 87635; 96360; 99284; 99285

== ENCOUNTER 2023-03-04 22:16 | Emergency (ER) | payer OTHER, SELFPAY ==
[2023-03-04 22:39] VITALS: BP 136/89; PULSE 118; RESP 16; TEMP 36.7; O2SAT 94; BMI 22.8
--- NOTE | 2023-03-04 23:34 | ED_ITS ---
HPI - Alcohol General Chief Complaint: ETOH/Substance Use Stated Complaint: ETOH Time Seen by Provider: 03/04/23 22:51 Source: EMS Mode of arrival: EMS Limitations: other (Intoxicated) History of Present Illness HPI narrative: Patient comes to the emergency room via EMS. Patient was discharged from this hospital a few hours ago, patient was ambulatory. Patient states that he drank vodka, got drunk, 911 was called and he was brought back to the emergency room intoxicated. This is the 3rd time in today's that the patient comes for same complaint, alcohol intoxication. Patient denies falling prior to arrival. Denies chest pain or shortness of breath, no URI or UTI symptoms MD complaint: alcohol intoxication Related Data Home Medications Medication Instructions Recorded Confirmed No Known Home Meds 03/04/23 03/04/23 Allergies Allergy/AdvReac Type Severity Reaction Status Date / Time No Known Allergies Allergy Verified 06/11/22 15:49 Review of Systems Review of Systems: Yes Unobtainable due to mental status (Patient is very intoxicated) [facility] Social History Social History Alcohol intake: current Alcohol intake frequency: 3 or more drinks per day Alcohol type: hard liquor Substance Use Type: Crack/Cocaine and Heroin Advance Directives: No Advance Directives Information Provided: No Physical Exam ED Vital Signs: Vital Signs - 24 hr 03/04/23 22:39 Temperature 98.0 F Pulse Rate 118 H Respiratory Rate 16 Blood Pressure 136/89 Pulse Oximetry 94 Oxygen Delivery Method Room Air BMI result Body Mass Index 22.8 Const Other: Appearance: Alert. Intoxicated Eyes: Pupils equal, round and reactive to light. ENT: Pharynx normal. Neck: Normal inspection. Neck supple. No lymph nodes noted. No crepitus CVS: Normal heart rate and rhythm. Pulses normal. Normal S1 and S2 Respiratory: No respiratory distress. Breath sounds normal. No Wheezing. No rales Abdomen: Soft and nontender. No rigidity. No distention. Skin: Skin warm and dry. Normal skin color. Normal skin turgor. Extremities: No lower extremity edema. No Lacerations. No Rash Neuro: Intoxicated, slurred speech, no neurological deficits Psych: calm, cooperative, keeps trying to get out of bed but redirectable Medical Decision Making Medical Decision Making MDM Narrative: -metabolize to freedom -care team consult pending -physician observation started at 23:30 -sign-out given to Dr. Gill -patient continuously getting out of bed, nearly falling. Patient was given p.o. 2 mg Ativan and 50 mg Benadryl. Differential Diagnosis Differential Diagnoses: The differential diagnosis associated with the presentation includes (Alcohol intoxication, polysubstance abuse) Admission/Observation Consideration of admission/observation: Escalation of care including admission/observation considered Discharge Plan Discharge Clinical Impression: Alcoholic intoxication Patient Disposition: Still a Patient Prescriptions: No Action No Known Home Meds Rx Instructions: Patient states he is not taking his prescription meds.
--- NOTE | 2023-03-04 23:37 | MHC.EDTECH ---
Assist patient with liner roll changer upon arrival and vitals.
[2023-03-05] MEDS: diphenhydrAMINE HCL 25 MG CAPSULE 50 MG PO (00:07)
[2023-03-05] MEDS: LORazepam 1 MG TABLET 2 MG PO (00:07)
--- NOTE | 2023-03-05 00:29 | PC.NURSE ---
pt bladder scanned for 1000ml
--- NOTE | 2023-03-05 00:30 | PC.NURSE ---
Pt continuously trying to get oob states he has to go to the bathroom, urinal given and pt voiding in small amounts. pt calling out mom and no one is there. pt is highly intoxicated and not able to follow commands.
--- NOTE | 2023-03-05 00:32 | PC.NURSE ---
pt bladder scanned for over 999 then he wet the bed and post void 919ml order for gross given.
--- NOTE | 2023-03-05 00:36 | PC.NURSE ---
wolfgang placed on pt for his safety of fall due to etoh.
[2023-03-05] MEDS: OLANZapine 10 MG TABLET 20 MG PO (00:38)
[2023-03-05 01:38] LABS: Appearance Urine Clear; Color Urine Yellow; Glucose Urine UA Negative (Negative); Leukocyte Esterase Urine Negative (Negative); Nitrite Urine Negative (Negative); PH 6.5 (5.0-9.0); Specific Gravity - Urine <= 1.005 (1.005-1.025); UMIC TRIGGER UACC YES; Urine Blood Small (1+) (Negative); Urine Ketones Negative (Negative); Urine Protein Negative (Neg-Trace)
[2023-03-05 02:12] LABS: Bacteria Urine None Seen (None Seen); Hyaline Casts Urine 0-2 /LPF (0-2); RBC Urine 0-2 /HPF (0-2); Squamous Epithelial Cell Urine 0-2 /HPF (0-2); WBC Urine 0-5 /HPF (0-5)
--- NOTE | 2023-03-05 03:45 | PC.NURSE ---
assumed care of pt pt sleeping no apparent distress, respirations even and unlabored
[2023-03-05 05:29] VITALS: BP 108/59; PULSE 93; RESP 16; TEMP 36.2; O2SAT 95
--- NOTE | 2023-03-05 05:41 | MHC.EDTECH ---
PT 1x repositioned in bed and warm blanket given. Pt call ma in reach and safety camera in room.
--- NOTE | 2023-03-05 06:31 | PC.NURSE ---
pt bp low, provider aware requested 1L fluids provider approved order to be entered verbal order 1L NS 999 ml/hr
[2023-03-05] MEDS: 0.9 % Sodium Chloride 1,000 ML 999 ML IV (06:34)
--- NOTE | 2023-03-05 07:51 | PC.NURSE ---
sleeping. skin pwd. camera in room. NAD.
[2023-03-05 08:53] VITALS: BP 136/86; PULSE 89; RESP 20; O2SAT 99
[2023-03-05 08:56] VITALS: PULSE 82
--- NOTE | 2023-03-05 08:58 | PC.NURSE ---
somewhat difficult to arouse for exam. able to follow commands but slow. skin pwd. stats last drink was last night.
[2023-03-05 10:04] VITALS: BP 127/89; PULSE 94; RESP 16; O2SAT 98
--- NOTE | 2023-03-05 10:15 | MHC.RECOVRN ---
Attempted to meet with pt in ED22 to discuss alcohol use and desire for treatment. Pt briefly opens eyes to touch, however, is not able to stay awake to engage in discussion. Will return later.
--- NOTE | 2023-03-05 10:19 | MHC.RECOVRN ---
Spoke with intake at [facility], no male beds available today. However, intake reports pt is not appropriate for ATS level of care and pt would not be accepted regardless. Per intake, pt has hx hallucinations even after completion of ATS/CIWA protocol. For example, pt had reported being able to go to the future. If pt is interested in [facility], he must have full psychiatric evaluation prior to presentation. Intake also reports pts [employer] supervisor continues to push pt into treatment in order to retain employment and pt is not interested independently. Will discuss with pt when more awake and alert.
--- NOTE | 2023-03-05 12:55 | MHC.RECOVSUP ---
Met with pt in ED22 with his friend. Pt confirms interest in ATS and is willing to go anywhere. T/W will conduct bed search.
[2023-03-05 14:00] VITALS: BP 106/63; PULSE 105; RESP 16; O2SAT 95
--- NOTE | 2023-03-05 15:40 | MHC.RECOVSUP ---
Pt denied to [facility] for inactive insurance. Insurance is active and emailed to [facility].
[2023-03-05 16:00] VITALS: BP 123/72; PULSE 114; RESP 18; TEMP 37.4; O2SAT 98
--- NOTE | 2023-03-05 16:46 | MHC.RECOVSUP ---
? Reason for consult Recovery support o Current location: ED22 o Identified substance use concern: - Withdrawal - Seeking ATS (detox) - Support ? Intervention: o Community resources provided o Harm reduction discussion ? Plan: o Patient to follow up with [facility] after discharge ? Additional information: Met with Patient and we talk about harm reduction, Patient completed intake and is on his way to [facility].
--- NOTE | 2023-03-05 16:55 | PC.NURSE ---
Patient told to follow up with urology discharged with gross catheter w/Leg bag.
== END 2023-03-05 16:56 | disposition home or self-care (01) ==
PROVIDERS: Emergency Provider Emergency Medicine
DX: F10.120 Alcohol abuse with intoxication, uncomplicated (principal); R33.9 Retention of urine, unspecified; Y90.9 Presence of alcohol in blood, level not specified
CPT/HCPCS: 81001; 81003; 96360; 99284; 99285

== ENCOUNTER 2023-06-07 15:38 | Outpatient (AMB) | payer OTHER, SELFPAY ==
--- OUTSIDE RECORDS SUMMARY | 2023-06-07 15:39 | XMS_ITS | Continuity of Care Document ---
Author Name Unknown Organization [facility] Adult Address [address] [place] [address]- Care Team Providers Care Cut Off Tender Glass Name Role Phone Bunny BOYD, Michelle Primary Care Physician [phone] Encounter [facility] Date(s): 03/07/23 - 04/06/23 [facility] Adult [address] [place] [id number]- Allergies, Adverse Reactions, Alerts No Known Allergies Immunizations Given and Recorded Vaccine Date Status Refusal Reason zoster vaccine, inactivated 01/05/20 Recorded tetanus/diphtheria/pertussis, acel(Tdap) 1 12/20/19 Given 1Result Comment: [facility]: [id number] Medications Advair Diskus 250 mcg-50 mcg inhalation powder 1, puffs, Inhalation, 2 times a day, # 180 each, Refills 1, Tot. Refills 1, Maintenance, 12/26/22 9:29:00 EST, Powder, Route to Pharmacy Electronically, NCPDP_[id number], [facility] #[id number],176.5, cm, 12/23/22 9:08:00 EST, Height Start Date: 12/26/22 Status: Ordered Albuterol (Eqv-ProAir HFA) 90 mcg/inh inhalation aerosol 2 puffs, Inhalation, Every 6 hours, PRN Wheezing/Shortness of Breath, # 1 each, 0 Refills, Maintenance, 06/24/22 16:40:00 EDT, [facility] #[id number], Partial fill upon patient request if the prescription is for a schedule II opioid drug., 2 puff... Start Date: 06/24/22 Status: Ordered naproxen 500 mg oral tablet 1 tablet = 500 mg, By Mouth, 2 times a day, PRN for pain, # 30 tablet, 0 Refills, Acute 03/31/24 15:16:00 EDT, 03/31/23 15:16:00 EDT, Tablet, [facility][id number], Partial fill upon patient request if the prescription is for a schedule II opioi... Start Date: 03/31/23 Stop Date: 03/31/24 Status: Ordered tamsulosin 0.4 mg oral capsule TAKE ONE CAPSULE BY MOUTH DAILY Start Date: 03/31/23 Status: Ordered Problem List Condition Confirmation Course Effective Dates Status Health St [facility] Informant Alcoholism Confirmed Active Asthma with COPD Confirmed Active Recurrent major depression Confirmed Active Social History Social History Type Response Tobacco Other: 1 ppd, 42 pac k yr history. Sex Patient Care team information Care Team Personnel Name: Mesha Arnold RN Position: [facility] RN Member Role: Primary Care Nurse Name: Michelle Hollis MD Position: [facility] Primary Care Physician Member Role: PCP Address: Address: [address] [place] [address] [address] [place] [address]- Care Team Related Persons Name: ADRIANO SALDIVAR Name: MICHAEL SMITH Address: home [address] [address]
--- OUTSIDE RECORDS SUMMARY | 2023-06-07 15:39 | XMS_ITS | Continuity of Care Document ---
Author Name Unknown Organization [facility] ter Address [address] [place] [id number]- Care Team Providers Care Product Trainer Name Role Phone Michelle Hollis MD Primary Care Physician [phone] [place] [facility] Date(s): 12/21/19 - 03/12/[address] [address]- [facility] Attending Physician: Torsten Peace MD Admitting Physician: Torsten Peace MD Allergies, Adverse Reactions, Alerts Substance Reaction Severity Status NKA Active Immunizations Given and Recorded Vaccine Date Status Refusal Reason tetanus/diphtheria/pertussis, acel(Tdap) 1 12/20/19 Given 1Result Comment: [facility]: [id number] Medications NuLYTELY with Flavor Packs oral powder for reconstitution 240 mL, By Mouth, Every 10 minutes, # 1 each, 0 Refills, Maintenance, 12/24/19 14:52:00 EST, REC Powder, [facility] #[id number], test date 06/09/20, 176.5, cm, 12/20/19 10:49:00 EST, Height Start Date: 12/24/19 Status: Ordered Social History Social History Type Response Tobacco Type: Cigarettes. To bacco use times per day: 1 pack a day. Sex
--- OUTSIDE RECORDS SUMMARY | 2023-06-07 15:39 | XMS_ITS | Continuity of Care Document ---
Author Name Unknown Organization [facility] Adult Address [address] [place] [address]- Care Team Providers Care Campus Police Officer Name Role Phone Bunny BOYD, Michelle Primary Care Physician Encounter [facility] Date(s): 03/31/23 - 04/30/23 [facility] Adult [address] [place] [id number]- Attending Physician: Doris Rico Admitting Physician: AdmtrDoris Referring Physician: Admtr, ArZach Allergies, Adverse Reactions, Alerts No Known Allergies Immunizations Given and Recorded Vaccine Date Status Refusal Reason zoster vaccine, inactivated 01/05/20 Recorded tetanus/diphtheria/pertussis, acel(Tdap) 1 12/20/19 Given 1Result Comment: [facility]: [id number] Medications Advair Diskus 250 mcg-50 mcg inhalation powder 1, puffs, Inhalation, 2 times a day, # 180 each, Refills 1, Tot. Refills 1, Maintenance, 12/26/22 9:29:00 EST, Powder, Route to Pharmacy Electronically, NCPDP_ID-[id number], [facility] #[id number],176.5, cm, 12/23/22 9:08:00 EST, Height Start Date: 12/26/22 Status: Ordered Albuterol (Eqv-ProAir HFA) 90 mcg/inh inhalation aerosol 2 puffs, Inhalation, Every 6 hours, PRN Wheezing/Shortness of Breath, # 1 each, 0 Refills, Maintenance, 06/24/22 16:40:00 EDT, [facility] #[id number], Partial fill upon patient request if the prescription is for a schedule II opioid drug., 2 puff... Start Date: 06/24/22 Status: Ordered naproxen 500 mg oral tablet 1 tablet = 500 mg, By Mouth, 2 times a day, PRN for pain, # 30 tablet, 0 Refills, Acute 03/31/24 15:16:00 EDT, 03/31/23 15:16:00 EDT, Tablet, [id number], Partial fill upon patient request if the [...] Team Personnel Name: Mesha Arnold RN [facility] RN Member Role: Primary Care Nurse Name: Michelle Hollis MD Position[facility] Physician - Primary Care Member Role: PCP Address: Address: [address] [place] [address] [address] [place] [address]- Care Team Related Persons Name: ADRIANO SALDIVAR Name: MICHAEL SMITH Address: home [address] [address]
--- OUTSIDE RECORDS SUMMARY | 2023-06-07 15:39 | XMS_ITS | Continuity of Care Document ---
Author Name Unknown Organization [facility] Adult Address [address] [place] [address]- Care Team Providers Care Curtain Cutter Hand Name Role Phone Bunny BOYD, Michelle Primary Care Physician Encounter [facility] [place] Date(s): 06/24/22 - 07/24/[address] [address] Allergies, Adverse Reactions, Alerts No Known Allergies Immunizations Given and Recorded Vaccine Date Status Refusal Reason zoster vaccine, inactivated 01/05/20 Recorded tetanus/diphtheria/pertussis, acel(Tdap) 1 12/20/19 Given 1Result Comment: [facility]: [id number] Medications Albuterol (Eqv-ProAir HFA) 90 mcg/inh inhalation aerosol 2 puffs, Inhalation, Every 6 hours, PRN Wheezing/Shortness of Breath, # 1 each, 0 Refills, Maintenance, 06/24/22 16:40:00 EDT, [id number], Partial fill upon patient request if the prescription is for a schedule II opioid drug., 2 puff... Start Date: 06/24/22 Status: Ordered Social History Social History Type Response Tobacco Other: 1 ppd, 40 pac k yr history. Sex Care Team Personnel Name: Michelle Hollis MD Address: [address] [place] [address] 3rd Floor [place], [place] [address]
--- OUTSIDE RECORDS SUMMARY | 2023-06-07 15:39 | XMS_ITS | Continuity of Care Document ---
Author Name Unknown Organization [facility] Adult Address [address] [place] [address]- Care Team Providers Care Emerging Solutions Executive Name Role Phone Bunny BOYD, Balbinanirav Primary Care Physician [place] [facility] [place] 06/11/22 - 07/11/22 [facility] Adult [address] [place] [id number] Allergies, Adverse Reactions, Alerts No Known Allergies Immunizations Given and Recorded Vaccine Date Status Refusal Reason zoster vaccine, inactivated 01/05/20 Recorded tetanus/diphtheria/pertussis, acel(Tdap) 1 12/20/19 Given 1Result Comment: [facility]: [id number] Medications Albuterol (Eqv-ProAir HFA) 90 mcg/inh inhalation aerosol 2 puffs, Inhalation, Every 6 hours, PRN Wheezing/Shortness of Breath, # 1 each, 0 Refills, Maintenance, 06/24/22 16:40:00 EDT, [id number], Partial fill upon patient request if the prescription is for a schedule II opioid drug., 2 puff... Start Date: 06/24/22 Status: Ordered Social History Social History Type Response Tobacco Other: 1 ppd, 40 pac k yr history. Sex
--- OUTSIDE RECORDS SUMMARY | 2023-06-07 15:39 | XMS_ITS | Continuity of Care Document ---
Author Name Unknown Organization [facility] Adult Address [address] [place] [address]- Care Team Providers Care Lead Front Desk Agent Name Role Phone Michelle Hollis MD Primary Care Physician [id number] Date(s): 12/20/19 - 12/27/[address] [facility] Adult [address] [place] [address]- [facility] Encounter Diagnosis Annual visit for general adult medical examination with abnormal findings (Discharge Diagnosis) - 12/20/19 History of alcoholism(Discharge Diagnosis) - 12/20/19 History of elevated PSA(Discharge Diagnosis) - 12/20/19 Tinea cruris(Discharge Diagnosis) - 12/20/19 Cigarette nicotine dependence(Discharge Diagnosis) - 12/20/19 Attending Physician: Michelle Hollis MD Allergies, Adverse Reactions, Alerts Substance Reaction Severity Status NKA Active Immunizations Given and Recorded Vaccine Date Status Refusal Reason tetanus/diphtheria/pertussis, acel(Tdap) 1 12/20/19 Given 1Result Comment: [facility]: [id number] Medications NuLYTELY with Flavor Packs oral powder for reconstitution 240 mL, By Mouth, Every 10 minutes, # 1 each, 0 Refills, Maintenance, 12/24/19 14:52:00 EST, REC Powder, [facility] #[id number], test date 02/18/20, 240 mL By Mouth Every 10 minutes, 176.5, cm, 12/20/19 10:49:00 EST, Height Start Date: 12/24/19 Status: Ordered nystatin topical 933790 u/gm cream 1 application, Topically, 2 times a day, for 14 days, # 30 Gm, 0 Refills, Acute 01/03/20 11:33:00 EST, 12/20/19 11:33:00 EST, Cream, [facility] #[id number], 1 application Topically 2 times a day,x14 days, 176.5, cm, 12/20/19 10:49:00 EST, Height Start Date: 12/20/19 Stop Date: 01/03/20 Status: Ordered Problem List Diagnosis Diagnosis Type Effective Dates Health Status Clinical Service Informant History of elevated PSA Discharge Diagnosis 12/20/19 History of alcoholism Discharge Diagnosis 12/20/19 Annual visit for general adult medical examination with abnormal findings Discharge Diagnosis 12/20/19 Tinea cruris Discharge Diagnosis 12/20/19 Cigarette nicotine dependence Discharge Diagnosis 12/20/19 Vital Signs Most recent to oldest [Reference Range]: 1 Height 176.5 cm (12/20/19 10:49 AM) Weight 68.3 kg (12/20/19 10:49 AM) Oxygen Saturation [94-100 %] 98 % (12/20/19 10:49 AM) Pulse Rate [55-90 bpm] 93 bpm *H* (12/20/19 10:49 AM) Body Mass Index [18.5-24.99] 21.92 (12/20/19 10:49 AM) Blood Pressure [90-138/55-84 mm Hg] 120/ 80mm Hg (12/20/19 10:49 AM) Mode of Delivery (Oxygen) Room air (12/20/19 10:49 AM) Blood pressure sites Arm, left (12/20/19 10:49 AM) Temperature Route Oral (12/20/19 10:49 AM) Weight Obtained Via Standing scale (12/20/19 10:49 AM) Social History Social History Type Response Tobacco Type: Cigarettes. To bacco use times per day: 1 pack a day. Sex
--- OUTSIDE RECORDS SUMMARY | 2023-06-07 15:39 | XMS_ITS | Continuity of Care Document ---
Author Name Unknown Organization [facility] Adult Address [address] [place] [address]- Care Team Providers Care Associate Professor Of Surgery Name Role Phone Bunny BOYD, Michelle Primary Care Physician [id number] Date(s): 11/23/22 - 11/30/22 [facility] Adult [address] [place] [address]- Encounter Diagnosis COVID-19 virus infection(Discharge Diagnosis) - 11/23/22 Attending Physician: Michelle Hollis MD Allergies, Adverse Reactions, Alerts No Known Allergies Immunizations Given and Recorded Vaccine Date Status Refusal Reason zoster vaccine, inactivated 01/05/20 Recorded tetanus/diphtheria/pertussis, acel(Tdap) 1 12/20/19 Given 1Result Comment: [facility]: [id number] Medications Albuterol (Eqv-ProAir HFA) 90 mcg/inh inhalation aerosol 2 puffs, Inhalation, Every 6 hours, PRN Wheezing/Shortness of Breath, # 1 each, 0 Refills, Maintenance, 06/24/22 16:40:00 [facility] #[id number], Partial fill upon patient request if the prescription is for a schedule II opioid drug., 2 puff... Start Date: 06/24/22 Status: Ordered Problem List Diagnosis Diagnosis Type Effective Dates Health Status Cl inical Service Informant COVID-19 virus infection Discharge Diagnosis 11/23/22 Vital Signs Most recent to oldest [Reference Range]: 1 Height 176.5 cm (11/23/22 12:51 PM) Weight 66 kg (11/23/22 12:51 PM) Body Mass Index [18.5-24.99 kg/m2] 21.19 kg/m2 (11/23/22 12:51 PM) Weight Obtained Via Patient/family state d (11/23/22 12:51 PM) Social History Social History Type Response Tobacco Other: 1 ppd, 40 pac k yr history. Sex Patient Care team information Care Team Personnel Name: Mesha Arnold RN Position: [facility] RN Member Role: Primary Care Nurse Name: Michelle Hollis MD Position: [facility] Primary Care Physician Member Role: PCP Address: Address: [address] [place] [address] [address] [place] [address]- Care Team Related Persons Name: ADRIANO SALDIVAR Name: MICHAEL SMITH Address: home [address] [address]
--- OUTSIDE RECORDS SUMMARY | 2023-06-07 15:39 | XMS_ITS | Continuity of Care Document ---
Author Name Unknown Organization [facility] Adult Address [address] [place] [address]- Care Team Providers Care Garage Door Installer Name Role Phone Bunny BOYD, Balbinanirav Primary Care Physician [phone] Encounter [facility] [place] Date(s): 02/11/23 - 03/13/23 [facility] Adult [address] [place] [address]- Allergies, Adverse Reactions, Alerts No Known Allergies Immunizations Given and Recorded Vaccine Date Status Refusal Reason zoster vaccine, inactivated 01/05/20 Recorded tetanus/diphtheria/pertussis, acel(Tdap) 1 12/20/19 Given 1Result Comment: [facility]: [id number] Medications Advair Diskus 250 mcg-50 mcg inhalation powder 1, puffs, Inhalation, 2 times a day, # 180 each, Refills 1, Tot. Refills 1, Maintenance, 12/26/22 9:29:00 EST, Powder, Route to Pharmacy Electronically, NCPDP_[id number], [facility] #[id number],176.5, cm, 12/23/22 9:08:00 EST, Height Start Date: 12/26/22 Status: Ordered Albuterol (Eqv-ProAir HFA) 90 mcg/inh inhalation aerosol 2 puffs, Inhalation, Every 6 hours, PRN Wheezing/Shortness of Breath, # 1 each, 0 Refills, Maintenance, 06/24/22 16:40:00 EDT, [facility] #[id number], Partial fill upon patient request if the prescription is for a schedule II opioid drug., 2 puff... Start Date: 06/24/22 Status: Ordered Problem List Condition Confirmation Course Effective Dates Status Health St [facility] Informant Alcoholism Confirmed Active Asthma with COPD Confirmed Active Recurrent major depression Confirmed Active Social History Social History Type Response Tobacco Other: 1 ppd, 40 pac k yr history. Sex Patient Care team information Care Team Personnel Name: Mesha Arnold RN Position: [facility] RN Member Role: Primary Care Nurse Name: Michelle Hollis MD Position: [facility] Primary Care Physician Member Role: PCP Address: Address: [address] [place] [address]- Care Team Related Persons Name: ADRIANO SALDIVAR Name: MICHAEL SMITH Address: home [address] [place] [address]
--- OUTSIDE RECORDS SUMMARY | 2023-06-07 15:39 | XMS_ITS | Continuity of Care Document ---
Author Name Unknown Organization [facility] Adult Address [address] [place] [address]- Care Team Providers Care Manager Digital Name Role Phone Michelle Hollis MD Primary Care Physician [phone] [id number] Date(s): 02/17/23 - 02/24/23 [facility] Adult [address] [place] [address]- Encounter Diagnosis Insomnia(Discharge Diagnosis) - 02/19/23 Attending Physician: Michelle Hollis MD Allergies, Adverse Reactions, Alerts No Known Allergies Immunizations Given and Recorded Vaccine Date Status Refusal Reason zoster vaccine, inactivated 01/05/20 Recorded tetanus/diphtheria/pertussis, acel(Tdap) 1 12/20/19 Given 1Result Comment: [facility]: [id number] Medications Advair Diskus 250 mcg-50 mcg inhalation powder 1, puffs, Inhalation, 2 times a day, # 180 each, Refills 1, Tot. Refills 1, Maintenance, 12/26/22 9:29:00 EST, Powder, Route to Pharmacy Electronically, NCPDP_[id number], [facility] #[id number],176.5, cm, 12/23/22 9:08:00 EST, Height Start Date: 12/26/22 Status: Ordered Albuterol (Eqv-ProAir HFA) 90 mcg/inh inhalation aerosol 2 puffs, Inhalation, Every 6 hours, PRN Wheezing/Shortness of Breath, # 1 each, 0 Refills, Maintenance, 06/24/22 16:40:00 EDT, [facility] #[id number], Partial fill upon patient request if the prescription is for a schedule II opioid drug., 2 puff... Start Date: 06/24/22 Status: Ordered Problem List Condition Confirmation Course Effective Dates Status Health St [facility] Informant Alcoholism Confirmed Active Asthma with COPD Confirmed Active Recurrent major depression Confirmed Active Diagnosis Diagnosis Type Effective Dates Health Status [facility] Service Informant Insomnia Discharge Diagnosis 02/19/23 Vital Signs Most recent to oldest [Reference Range]: 1 Height 176.5 cm (02/17/23 7:52 AM) Weight 65 kg (02/17/23 7:52 AM) Body Mass Index [18.5-24.99 kg/m2] 20.87 kg/m2 (02/17/23 7:52 AM) Social History Social History Type Response Tobacco Other: 1 ppd, 40 pac k yr history. Sex Patient Care team information Care Team Personnel Name: Mesha Arnold RN Position: [facility] RN Member Role: Primary Care Nurse Name: Michelle Hollis MD Position: [facility] Primary Care Physician Member Role: PCP Address: Address: [address] [place] [address] [address]rd [place] [address]- Care Team Related Persons Name: ADRIANO SALDIVAR Name: MICHAEL SMITH Address: home [address] [address]
--- OUTSIDE RECORDS SUMMARY | 2023-06-07 15:39 | XMS_ITS | Continuity of Care Document ---
Author Name Unknown Organization [facility] Adult Address [address] [place] [address]- Care Team Providers Care Tank Builder Supervisor Name Role Phone Bunny BOYD, Michelle Primary Care Physician [phone] [id number] Date[facility]23 - 05/06/23 [facility] Adult [address] [place] [address]- Allergies, Adverse Reactions, Alerts No Known Allergies Immunizations Given and Recorded Vaccine Date Status Refusal Reason zoster vaccine, inactivated 01/05/20 Recorded tetanus/diphtheria/pertussis, acel(Tdap) 1 12/20/19 Given 1Result Comment: [facility]: [id number] Medications Advair Diskus 250 mcg-50 mcg inhalation powder 1, puffs, Inhalation, 2 times a day, # 180 each, Refills 1, Tot. Refills 1, Maintenance, 12/26/22 9:29:00 EST, Powder, Route to Pharmacy Electronically, NCPDP_ID-[id number], [facility] #[id number],176.5, cm, 12/23/22 9:08:00 EST, Height Start Date: 12/26/22 Status: Ordered Albuterol (Eqv-ProAir HFA) 90 mcg/inh inhalation aerosol 2 puffs, Inhalation, Every 6 hours, PRN Wheezing/Shortness of Breath, # 1 each, 0 Refills, Maintenance, 06/24/22 16:40:00 EDT, [facility] #[id number], Partial fill upon patient request if the prescription is for a schedule II opioid drug., 2 puff... Start Date: 06/24/22 Status: Ordered naproxen 500 mg oral tablet 1 tablet = 500 mg, By Mouth, 2 times a day, PRN for pain, # 30 tablet, 0 Refills, Acute 03/31/24 15:16:00 EDT, 03/31/23 15:16:00 EDT, [id number], Partial fill upon patient request if the [...] Team Personnel Name: Mesha Arnold RN Position: [facility] RN Member Role: Primary Care Nurse Name: Michelle Hollis MD Position: [facility] Physician - Primary Care Member Role: PCP Address: Address: [address] [place] [address] 3rd [place] [address]- Care Team Related Persons Name: ADRIANO SALDIVAR Name: MICHAEL SMITH Address: home [address] [address]
--- OUTSIDE RECORDS SUMMARY | 2023-06-07 15:39 | XMS_ITS | Continuity of Care Document ---
Author Name Unknown Organization [facility] Adult Address [address] [place] [address]- Care Team Providers Care Excel Analyst Name Role Phone Bunny BOYD, Balbinanirav Primary Care Physician [phone] [id number] Date(s): 12/24/22 - 12/31/22 [facility] Adult [address] [place] [address]- Attending Physician: Not on Staff, Attending MD Allergies, Adverse Reactions, Alerts No Known Allergies Immunizations Given and Recorded Vaccine Date Status Refusal Reason zoster vaccine, inactivated 01/05/20 Recorded tetanus/diphtheria/pertussis, acel(Tdap) 1 12/20/19 Given 1Result Comment: [facility]: [id number] Medications Advair Diskus 250 mcg-50 mcg inhalation powder 1, puffs, Inhalation, 2 times a day, # 180 each, Refills 1, Tot. Refills 1, Maintenance, 12/26/22 9:29:00 EST, Powder, Route to Pharmacy Electronically, NCPDP_[id number], [facility] #[id number],176.5, cm, 12/23/22 9:08:00 EST, Height Start Date: 12/26/22 Status: Ordered Albuterol (Eqv-ProAir HFA) 90 mcg/inh inhalation aerosol 2 puffs, Inhalation, Every 6 hours, PRN Wheezing/Shortness of Breath, # 1 each, 0 Refills, Maintenance, 06/24/22 16:40:00 EDT, [facility] #[id number], Partial fill upon patient request if the prescription is for a schedule II opioid drug., 2 puff... Start Date: 06/24/22 Status: Ordered Social History Social History Type Response Tobacco Other: 1 ppd, 40 pac k yr history. Sex Patient Care team information Care Team Personnel Name: Mesha Arnold RN Position: [facility] RN Member Role: Primary Care Nurse Name: Michelle Hollis MD Position: [facility] Primary Care Physician Member Role: PCP Address: Address: [address] [place] [address]- Care Team Related Persons Name: ADRIANO SALDIVAR Name: MICHAEL SMITH Address: home [address] [place] [address]
--- OUTSIDE RECORDS SUMMARY | 2023-06-07 15:39 | XMS_ITS | Continuity of Care Document ---
Author Name Unknown Organization [facility] Adult Address [address] [place] [address]- Care Team Providers Care Building Official Name Role Phone Bunny BOYD, Balbinanirav Primary Care Physician [phone] Encounter [facility] Date(s): 07/22/21 - 07/29/21 [facility] Adult [address] [place] [address]- Encounter Diagnosis Chest pain(Discharge Diagnosis) - 07/22/21 Attending Physician: Not on Staff, Attending MD Allergies, Adverse Reactions, Alerts Substance Reaction Severity Status NKA Active Immunizations Given and Recorded Vaccine Date Status Refusal Reason zoster vaccine, inactivated 01/05/20 Recorded tetanus/diphtheria/pertussis, acel(Tdap) 1 12/20/19 Given 1Result Comment: [facility]: [id number] Medications No Known Medications Problem List Diagnosis Diagnosis Type Effective Dates Health Status [facility] Service Informant Chest pain Discharge Diagnosis 07/22/21 Vital Signs Most recent to oldest [Reference Range]: 1 Height 176.5 cm (07/22/21 8:49 AM) Social History Social History Type Response Tobacco Type: Cigarettes. To bacco use times per day: 1 pack a day. Sex
--- OUTSIDE RECORDS SUMMARY | 2023-06-07 15:39 | XMS_ITS | Continuity of Care Document ---
Author Name Unknown Organization [facility] Adult Address [address] [place] [address]- Care Team Providers Care Community Center Coordinator Name Role Phone Bunny BOYD, Michelle Primary Care Physician Encounter [facility] [place] Date(s): 03/22/20 - 07/20/20 [facility] Adult [address] [place] [address] Attending Physician: Michelle Hollis MD Allergies, Adverse Reactions, Alerts Substance Reaction Severity Status NKA Active Immunizations Given and Recorded Vaccine Date Status Refusal Reason tetanus/diphtheria/pertussis, acel(Tdap) 1 12/20/19 Given 1Result Comment: [facility]: [id number] Medications NuLYTELY with Flavor Packs oral powder for reconstitution 240 mL, By Mouth, Every 10 minutes, # 1 each, 0 Refills, Maintenance, 12/24/19 14:52:00 EST, REC Powder, [facility] #[id number], test date 06/09/20, 176.5, cm, 12/20/19 10:49:00 EST, Height Start Date: 12/24/19 Status: Ordered Social History Social History Type Response Tobacco Type: Cigarettes. To bacco use times per day: 1 pack a day. Sex
--- OUTSIDE RECORDS SUMMARY | 2023-06-07 15:39 | XMS_ITS | Continuity of Care Document ---
Author Name Unknown Organization [facility] Address [address] [place] [address]- Care Team Providers Care Door Opener Name Role Phone Michelle Hollis MD Primary Care Physician Encounter [facility] Date(s): 12/20/19 - 12/20/[address] [address]- [facility] Attending Physician: Michelle Hollis MD Allergies, Adverse Reactions, Alerts Substance Reaction Severity Status NKA Active Immunizations Given and Recorded Vaccine Date Status Refusal Reason tetanus/diphtheria/pertussis, acel(Tdap) 1 12/20/19 Given 1Result Comment: [facility]: [id number] Medications nystatin topical 983464 u/gm cream 1 application, Topically, 2 times a day, for 14 days, # 30 Gm, 0 Refills, Acute 01/03/20 11:33:00 EST, 12/20/19 11:33:00 EST, Cream, [facility] #[id number], 1 application Topically 2 times a day,x14 days, 176.5, cm, 12/20/19 10:49:00 EST, Height Start Date: 12/20/19 Stop Date: 01/03/20 Status: Ordered Social History Social History Type Response Tobacco Type: Cigarettes. To bacco use times per day: 1 pack a day. Sex
--- OUTSIDE RECORDS SUMMARY | 2023-06-07 15:39 | XMS_ITS | Continuity of Care Document ---
Author Name Unknown Organization [facility] Adult Address [address] [place] [address]- Care Team Providers Care Psychiatric Security Nurse Name Role Phone Bunny BOYD, Balbinanirav Primary Care Physician [id number]): [facility] - 05/13/23 [facility] Adult [address] [place] [address]- Encounter Diagnosis Pre-syncope(Discharge Diagnosis) - 05/06/23 Attending Physician: Not on Staff, Attending MD Allergies, Adverse Reactions, Alerts No Known Allergies Immunizations Given and Recorded Vaccine Date Status Refusal Reason zoster vaccine, inactivated 01/05/20 Recorded tetanus/diphtheria/pertussis, acel(Tdap) 1 12/20/19 Given 1Result Comment: [facility] [place]NOTE 2]: [id number] Medications Advair Diskus 250 mcg-50 mcg inhalation powder 1, puffs, Inhalation, 2 times a day, # 180 each, Refills 1, Tot. Refills 1, Maintenance, 12/26/22 9:29:00 EST, Powder, Route to Pharmacy Electronically, NCPDP_[id number], [facility] #[id number],176.5, cm, 12/23/22 9:08:00 EST, Height Start Date: 12/26/22 Status: Ordered Albuterol (Eqv-ProAir HFA) 90 mcg/inh inhalation aerosol 2 puffs, Inhalation, Every 6 hours, PRN Wheezing/Shortness of Breath, # 1 each, 0 Refills, Maintenance, 06/24/22 16:40:00 EDT, [facility] #[id number], Partial fill upon patient request if the prescription is for a schedule II opioid drug., 2 puff... Start Date: 06/24/22 Status: Ordered naproxen 500 mg oral tablet 1 tablet = 500 mg, By Mouth, 2 times a day, PRN for pain, # 30 tablet, 0 Refills, Acute 03/31/24 15:16:00 EDT, 03/31/23 15:16:00 EDT, Tablet, [facility] #[id number], Partial fill upon patient request if the [...] Dates Health Status Clini esperanza Service Informant Pre-syncope Discharge Diagnosis 05/06/23 Vital Signs Most recent to oldest [Reference Range]: 1 Height 176.5 cm (05/06/23 3:38 PM) Weight 66.2 kg (05/06/23 3:38 PM) Oxygen Saturation [94-100 %] 96 % (05/06/23 3:38 PM) Pulse Rate [55-90 bpm] 106 bpm *H* (05/06/23 3:38 PM) Body Mass Index [18.5-24.99 kg/m2] 21.25 kg/m2 (05/06/23 3:38 PM) Blood Pressure [90-138/55-84 mm Hg] 127/ 84mm Hg (05/06/23 3:38 PM) Mode of Delivery (Oxygen) Room air (05/06/23 3:38 PM) Blood pressure sites Arm, right (05/06/23 3:38 PM) Weight Obtained Via Standing scale (05/06/23 3:38 PM) Social History Social History Type Response Tobacco Other: 1 ppd, 40 pac k yr history. Sex Note * Colon , Cat: PERFORM, SIGN, VERIFY Event Display: Patient Education/Instruction Authored Date: [id number] [facility] Clinical Summary Name LANCE AVITIA Age 57 Years 1965 PCP Bunny BOYD, Michelle PCP Visit Date 05/06/2023 15:36:00 Additional Instructions: Scheduled Appointments?? Future Appointments ?*[facility] ?[address],??[place],??[address] ?Phone:??--?Fax:??-- ?Appt. Date:??05/27/2023?2:05 PM ?Scheduled Provider:??Michelle Hollis MD ?*[facility] ?[address]??[place],??[place],??[address] ?Phone:??--?Fax:??-- ?Appt. Date:??06/15/2023?8:00 AM ?Scheduled Provider:??Tamika GILBERT, Chel Hensley Follow-Up Instructions ?? With: Address: When: Michelle Hollis MD 05/06/2023 12:00 AM Diagnosis Syncope and collapse Medications: Please continue your medications until treatment is completed or stopped by your provider. Discuss any questions related to medications with your provider. Medications to Continue with No Changes These medications were not printed or sent to your pharmacy Albuterol (Albuterol (Eqv-ProAir HFA) 90 mcg/inh inhalation aerosol) 2 puff(s) Inhalation every 6 hours as needed Wheezing/Shortness of Breath. Refills: 0. Next Dose: Fluticasone-Salmeterol (Advair Diskus 250 mcg-50 mcg inhalation powder) 1 puff(s) Inhalation twice a day. Refills: 1. Next Dose: Naproxen (naproxen 500 mg oral tablet) 1 tab(s) Oral twice a day as needed for pain. Refills: 0. Next Dose: Tamsulosin (tamsulosin 0.4 mg oral capsule) TAKE ONE CAPSULE BY MOUTH DAILY. Next Dose: Allergy Info:?? NKA Medications Given This Visit Future Orders ?No future orders Vital Signs Height 176.5 cm Weight 66.2 kg BMI 21.25 kg/m2 Blood Pressure 127 mm Hg/84 mm Hg Temperature Pulse Rate 106 bpm Respiratory Rate 02 Sat Mode of Delivery 96 %/Room air You can now view a summary of your hospital visit from the comfort of your home through a free online portal called [employer]. [employer] is a website that allows you to securely view your medical information including discharge summary, medications and follow-up visits. ??You can alsosend a secure electronic message to your doctor???s office to request appointments, renew medications or just ask a question. You can enroll at [email or web address] or register during your next office visit. Disclaimer:?? The information provided is of a general nature and is intended to be used in conjunction with the recommendations and advice of your health care practitioner. ??Every effort has been made to ensure that the information provided is accurate and complete at the time it is provided to you however, as your needs change, or, as new ??information becomes available, different or additional instructions may be required. If you have questions, please consult with your primary care provider or pharmacist, as appropriate. ??This information is not intended to serve as substitution for assessment and evaluation by a qualified health care provider. If you do not have a primary care provider, you may find a [facility] provider by calling [facility] at [phone]. For information about the plan of care including goals and instructions for your diagnosis, please see the patient education orders section of this document. Patient Education Materials?? The content of this educational material or handout may have been modified, supplemented, or adapted from its original content and format to support your individualized medical care. Patient Care team information Care Team Personnel Name: Mesha Arnold RN Position: [facility] RN Member Role: Primary Care Nurse Name: Michelle Hollis MD Position: [facility] Physician - Primary Care Member Role: PCP Address: Address: [address] [place] [address] [address] [place] [address]- Care Team Related Persons Name: ADRIANO SALDIVAR Name: MICHAEL SMITH Address: home [address] [place] [address]
--- OUTSIDE RECORDS SUMMARY | 2023-06-07 15:39 | XMS_ITS | Continuity of Care Document ---
Author Name Unknown Organization [facility] Adult Address [address] [place] [address]- Care Team Providers Care Geosciences Professor Name Role Phone Michelle Hollis MD Primary Care Physician [phone] Encounter [place] Date(s): 08/17/22 - 09/16/[address] [address] Attending Physician: Doris Rico Admitting Physician: Doris Rico Referring Physician: AdmtrDoris Allergies, Adverse Reactions, Alerts No Known Allergies Immunizations Given and Recorded Vaccine Date Status Refusal Reason zoster vaccine, inactivated 01/05/20 Recorded tetanus/diphtheria/pertussis, acel(Tdap) 1 12/20/19 Given 1Result Comment: [facility]: [id number] Medications Albuterol (Eqv-ProAir HFA) 90 mcg/inh inhalation aerosol 2 puffs, Inhalation, Every 6 hours, PRN Wheezing/Shortness of Breath, # 1 each, 0 Refills, Maintenance, 06/24/22 16:40:00 T, [facility] #[id number], Partial fill upon patient request if the prescription is for a schedule II opioid drug., 2 puff... Start Date: 06/24/22 Status: Ordered Social History Social History Type Response Tobacco Other: 1 ppd, 40 pac k yr history. Sex Patient Care team information Personnel Name: Michelle Hollis MD Address: Address: [address] [place] [address] [address] [place] [address]-
--- OUTSIDE RECORDS SUMMARY | 2023-06-07 15:39 | XMS_ITS | Continuity of Care Document ---
Author Name Unknown Organization [facility] Adult Address [address] [place] [address]- Care Team Providers Care Consumer Credit Counselor Name Role Phone Bunny BOYD, Michelle Primary Care Physician Encounter [facility] Date(s): 05/03/22 - 06/02/22 [facility] Adult [address] [place] [address]- Allergies, Adverse Reactions, Alerts No Known Allergies Immunizations Given and Recorded Vaccine Date Status Refusal Reason zoster vaccine, inactivated 01/05/20 Recorded tetanus/diphtheria/pertussis, acel(Tdap) 1 12/20/19 Given 1Result Comment: [facility]: [id number] Social History Social History Type Response Tobacco Other: 1 ppd, 40 pac k yr history. Sex
--- OUTSIDE RECORDS SUMMARY | 2023-06-07 15:39 | XMS_ITS | Continuity of Care Document ---
Author Name Unknown Organization [facility] Adult Address [address] [place] [address]- Care Team Providers Care Supplier Relationship Director Name Role Phone Bunny BOYD, Balbinanirav Primary Care Physician [phone] Encounter [facility] Date(s): 06/11/22 - 07/11/22 [facility] Adult [address] [place] [address]- Allergies, Adverse Reactions, Alerts No Known Allergies Immunizations Given and Recorded Vaccine Date Status Refusal Reason zoster vaccine, inactivated 01/05/20 Recorded tetanus/diphtheria/pertussis, acel(Tdap) 1 12/20/19 Given 1Result Comment: [facility]: [id number] Medications Albuterol (Eqv-ProAir HFA) 90 mcg/inh inhalation aerosol 2 puffs, Inhalation, Every 6 hours, PRN Wheezing/Shortness of Breath, # 1 each, 0 Refills, Maintenance, 06/24/22 16:40:00 EDT, [id number], Partial fill upon patient request if the prescription is for a schedule II opioid drug., 2 puff... Start Date: 06/24/22 Status: Ordered Social History Social History Type Response Tobacco Other: 1 ppd, 40 pac k yr history. Sex
--- OUTSIDE RECORDS SUMMARY | 2023-06-07 15:39 | XMS_ITS | Continuity of Care Document ---
Author Name Unknown Organization [facility] Adult Address [address] [place] [address]- Care Team Providers Care Tracer Lathe Set Up Operator Name Role Phone Bunny BOYD, Michelle Primary Care Physician [phone] [id number] Date[facility] - 06[facility]04/[facility] [address] [place] [address]- Allergies, Adverse Reactions, Alerts No Known Allergies Immunizations Given and Recorded Vaccine Date Status Refusal Reason zoster vaccine, inactivated 01/05/20 Recorded tetanus/diphtheria/pertussis, acel(Tdap) 1 12/20/19 Given 1Result Comment: [facility]: [id number] Medications Advair Diskus 250 mcg-50 mcg inhalation powder 1, puffs, Inhalation, 2 times a day, # 180 each, Refills 1, Tot. Refills 1, Maintenance, 12/26/22 9:29:00 EST, Powder, Route to Pharmacy Electronically, NCPDP_[id number], [facility] #[id number],176.5, cm, 12/23/22 9:08:00 EST, Height Start Date: 12/26/22 Status: Ordered Albuterol (Eqv-ProAir HFA) 90 mcg/inh inhalation aerosol 2 puffs, Inhalation, Every 6 hours, PRN Wheezing/Shortness of Breath, # 1 each, 0 Refills, Maintenance, 06/24/22 16:40:00 EDT, [facility] #[id number], Partial fill upon patient request if the prescription is for a schedule II opioid drug., 2 puff... Start Date: 06/24/22 Status: Ordered tamsulosin 0.4 mg oral capsule [...] Team Personnel Name: Mesha Arnold RN Position: S RN Member Role: Primary Care Nurse Name: Bunny BOYD, Michelle Position: [facility] Physician - Primary Care Member Role: PCP Address: Address: [address] [place] [address]- Care Team Related Persons Name: ADRIANO SALDIVAR Name: MICHAEL SMITH Address: home [address] [address]
--- OUTSIDE RECORDS SUMMARY | 2023-06-07 15:39 | XMS_ITS | Continuity of Care Document ---
Author Name Unknown Organization [facility] Adult Address [address] [place] [address]- Care Team Providers Care Solutions Engineer Name Role Phone Bunny BOYD, Michelle Primary Care Physician [phone] Encounter [facility] Date(s): 04/30/22 - 05/07/22 [facility] Adult [address] [place] [address]- Encounter Diagnosis Low back pain(Discharge Diagnosis) - 05/02/22 Abdominal pain(Discharge Diagnosis) - 05/02/22 Urethral pain(Discharge Diagnosis) - 05/02/22 Cough(Discharge Diagnosis) - 05/02/22 Mild major depression, single episode(Discharge Diagnosis) - 05/02/22 Attending Physician: Michelle Hollis MD Allergies, Adverse Reactions, Alerts No Known Allergies Immunizations Given and Recorded Vaccine Date Status Refusal Reason zoster vaccine, inactivated 01/05/20 Recorded tetanus/diphtheria/pertussis, acel(Tdap) 1 12/20/19 Given 1Result Comment: [facility]: [id number] Problem List Diagnosis Diagnosis Type Effective Dates Health Status Cl inical Service Informant Low back pain Discharge Diagnosis 05/02/22 Abdominal pain Discharge Diagnosis 05/02/22 Urethral pain Discharge Diagnosis 05/02/22 Cough Discharge Diagnosis 05/02/22 Mild major depression, single episode Discharge Diagnosis 05/02/22 Vital Signs Most recent to oldest [Reference Range]: 1 Height 176.5 cm (04/30/22 1:24 PM) Weight 63.3 kg (04/30/22 1:24 PM) Oxygen Saturation [94-100 %] 98 % (04/30/22 1:24 PM) Pulse Rate [55-90 bpm] 77 bpm (04/30/22 1:24 PM) Body Mass Index [18.5-24.99] 20.32 (04/30/22 1:24 PM) Blood Pressure [90-138/55-84 mm Hg] 123/ 79mm Hg (04/30/22 1:24 PM) Respiratory Rate [16-30 br/min] 18 br/mi n (04/30/22 1:24 PM) Mode of Delivery (Oxygen) Room air (04/30/22 1:24 PM) Blood pressure sites Arm, left (04/30/22 1:24 PM) Weight Obtained Via Standing scale (04/30/22 1:24 PM) Social History Social History Type Response Tobacco Type: Cigarettes. To bacco use times per day: 1 pack a day. Sex
--- OUTSIDE RECORDS SUMMARY | 2023-06-07 15:39 | XMS_ITS | Continuity of Care Document ---
Author Name Unknown Organization [facility] Adult Address [address] [place] [address]- Care Team Providers Care Scheduling Assistant Name Role Phone Bunny BOYD, Michelle Primary Care Physician Encounter [facility] [place] Date(s): 04/01/22 - 05/01/22 [facility] Adult [address] [place] [address]- Allergies, Adverse Reactions, Alerts No Known Allergies Immunizations Given and Recorded Vaccine Date Status Refusal Reason zoster vaccine, inactivated 01/05/20 Recorded tetanus/diphtheria/pertussis, acel(Tdap) 1 12/20/19 Given 1Result Comment: [facility]: [id number] Social History Social History Type Response Tobacco Type: Cigarettes. To bacco use times per day: 1 pack a day. Sex
--- OUTSIDE RECORDS SUMMARY | 2023-06-07 15:39 | XMS_ITS | Continuity of Care Document ---
Author Name Unknown Organization [facility] Adult Address [address] [place] [address]- Care Team Providers Care Hse Manager Name Role Phone Bunny BOYD, Michelle Primary Care Physician Encounter [facility] [place] [facility] Date(s): 07/22/21 - 08/21/21 [facility] Adult [address] [place] [address]- Attending Physician: Doris Rico Admitting Physician: Doris Rico Referring Physician: AdmtrDoris Allergies, Adverse Reactions, Alerts Substance Reaction Severity Status NKA Active Immunizations Given and Recorded Vaccine Date Status Refusal Reason zoster vaccine, inactivated 01/05/20 Recorded tetanus/diphtheria/pertussis, acel(Tdap) 1 12/20/19 Given 1Result Comment: [facility]: [id number] Social History Social History Type Response Tobacco Type: Cigarettes. To bacco use times per day: 1 pack a day. Sex
--- OUTSIDE RECORDS SUMMARY | 2023-06-07 15:39 | XMS_ITS | Continuity of Care Document ---
Author Name Unknown Organization [facility] Adult Address [address] [place] [address]- Care Team Providers Care Hurricane Tracker Name Role Phone Bunny BOYD, Michelle Primary Care Physician [place] [facility] Date(s): 08/28/21 - 09/27/21 [facility] Adult [address] [place] [address]- Allergies, Adverse Reactions, Alerts Substance Reaction Severity Status NKA Active Immunizations Given and Recorded Vaccine Date Status Refusal Reason zoster vaccine, inactivated 01/05/20 Recorded tetanus/diphtheria/pertussis, acel(Tdap) 1 12/20/19 Given 1Result Comment: [facility]: [id number] Social History Social History Type Response Tobacco Type: Cigarettes. To bacco use times per day: 1 pack a day. Sex
--- NOTE | 2023-06-07 15:40 | AM.OFFWIN_ITS ---
Intake Vital Signs 06/07/23 15:44 BP 104/68 Blood Pressure Location Rt brachial Position Sitting Pulse 110 H Pulse Source Pulse Oximeter Temp 97.4 F Temp Source Temporal Artery Scan Pulse Oximetry (%) 97 Oxygen Delivery Method Room Air Intake Visit Reasons: EP Sinus/copd cough,pain (lobby) Intake Note: Patient here because he has been sick for a few weeks. started off with sinus infection and cough. Patient Tobacco Use Status: Current everyday Tobacco user Allergies No Known Allergies Allergy (Verified 06/08/23 05:49) Medication List - Last Reconciled 06/08/23 by Jhony Marcelino MD albuterol sulfate 90 mcg/actuation inhalation azithromycin (Zithromax) take 500 mg today (day 1), then 250 mg for 4 days (days 2-5) PO tamsulosin 0.4 mg PO DAILY Do you need a note to return to daycare/school/sports/work: No HPI EP Sinus/copd cough,pain (lobby) HPI Details Patient presents for a sick visit. Reporting symptoms of sinus congestion, sore throat and difficulty swallowing. Low-grade fever. No family member is sick. No recent travel. Patient reports symptoms of malaise and fatigue. Patient is also complaining of chest pain on the right side. Constant pain for the past few weeks. Patient is a smoker. [facility] Social History Alcohol intake: current Alcohol intake frequency: 3 or more drinks per day Alcohol type: hard liquor Patient Tobacco Use Status: Current everyday Tobacco user Substance Use Type: Crack/Cocaine and Heroin Physical Exam Vital Signs: Last Vital Signs Temp 97.4 F 06/07/23 15:44 Pulse 110 H 06/07/23 15:44 BP 104/68 06/07/23 15:44 Pulse Ox 97 06/07/23 15:44 Oxygen Delivery Method Room Air 06/07/23 15:44 Const General: cooperative and healthy appearing Nutritional Appearance: well nourished Orientation/consciousness: patient oriented x3 Limitations: no limitations HEENT Head: Yes normal to inspection Eyes General: appearance normal, both eyes and all related structures Neck Neck: Yes normal visual inspection Chest Chest palpation & inspection: normal palpation of entire chest wall Resp Effort & Inspection: normal respiratory effort Neuro General: patient oriented x3 Assessment & Plan Assessment & Plan (1) Chest pain: Code(s): R07.9 - Chest pain, unspecified Plan: Chest x-ray was reviewed by me. Patient was counseled to quit smoking. Antibiotics ordered. Increase fluid intake. Tylenol for aches and pains. If symptoms worsen, follow-up here for a recheck. Orders: Orders XR chest 2V 06/07/23 R07.9 - Chest pain, unspecified Medications: New azithromycin (Zithromax) take 500 mg today (day 1), then 250 mg for 4 days (days 2-5) PO 6 tabs 0RF Coding Level of Care Code Est Pt Level 4 (15542) Diagnoses Chest pain R07.9
--- OUTSIDE RECORDS SUMMARY | 2023-06-07 15:40 | XMS_ITS | Continuity of Care Document ---
Author Name Unknown Organization [facility] Adult Address [address] [place] [address]- Care Team Providers Care Traveler Changer Name Role Phone Michelle Hollis MD Primary [id number] - 12/23/[address] [address] Allergies, Adverse Reactions, Alerts No Known Allergies Immunizations Given and Recorded Vaccine Date Status Refusal Reason zoster vaccine, inactivated 01/05/20 Recorded tetanus/diphtheria/pertussis, acel(Tdap) 1 12/20/19 Given 1Result Comment: [facility]: [id number] Medications Albuterol (Eqv-ProAir HFA) 90 mcg/inh inhalation aerosol 2 puffs, Inhalation, Every 6 hours, PRN Wheezing/Shortness of Breath, # 1 each, 0 Refills, Maintenance, 06/24/22 16:40:00 EDT, [facility] #[id number], Partial fill upon patient request if the prescription is for a schedule II opioid drug., 2 puff... Start Date: 06/24/22 Status: Ordered Social History Social History Type Response Tobacco Other: 1 ppd, 40 pac k yr history. Sex Patient Care team information Care Team Personnel Name: Mesha Arnold RN Position: S RN Member Role: Primary Care Nurse Name: Michelle Hollis MD Position: [facility] Primary Care Physician Member Role: PCP Address: Address: [address] [place] [address]- Care Team Related Persons Name: ADRIANO SALDIVAR Name: MICHAEL SMITH Address: [address] [address]
--- OUTSIDE RECORDS SUMMARY | 2023-06-07 15:40 | XMS_ITS | Continuity of Care Document ---
Author Name Unknown Organization [facility] Adult Address [address] [place] [address]- Care Team Providers Care Dust Operator Name Role Phone Bunny BOYD, Balbinanirav Primary Care Physician [phone] [place] [facility] [place](s): 06/05/22 - 07/05/22 [facility] Adult [address] [place] [address]- Allergies, Adverse Reactions, Alerts No Known Allergies Immunizations Given and Recorded Vaccine Date Status Refusal Reason zoster vaccine, inactivated 01/05/20 Recorded tetanus/diphtheria/pertussis, acel(Tdap) 1 12/20/19 Given 1Result Comment: [facility]: [id number] Medications Albuterol (Eqv-ProAir HFA) 90 mcg/inh inhalation aerosol 2 puffs, Inhalation, Every 6 hours, PRN Wheezing/Shortness of Breath, # 1 each, 0 Refills, Maintenance, 06/24/22 16:40:00 EDT, [id number], Partial fill upon patient request if the prescription is for a schedule II opioid drug., 2 puff... Start Date: 06/24/22 Status: Ordered Social History Social History Type Response Tobacco Other: 1 ppd, 40 pac k yr history. Sex
--- OUTSIDE RECORDS SUMMARY | 2023-06-07 15:40 | XMS_ITS | Continuity of Care Document ---
Author Name Unknown Organization [facility] Adult Address [address] [place] [address]- Care Team Providers Care Yarn Mercerizer Operator Helper Name Role Phone Bunny BOYD, Michelle Primary Care Physician [phone] Encounter [facility] [place] Date(s): 12/23/22 - 12/30/22 [facility] Adult [address] [place] [address]- Encounter Diagnosis Chest pain(Discharge Diagnosis) - 12/23/22 Asthma with COPD(Discharge Diagnosis) - 12/26/22 Attending Physician: Michelle Hollis MD Allergies, Adverse Reactions, Alerts No Known Allergies Immunizations Given and Recorded Vaccine Date Status Refusal Reason zoster vaccine, inactivated 01/05/20 Recorded tetanus/diphtheria/pertussis, acel(Tdap) 1 12/20/19 Given 1Result Comment: [facility]: [id number] Medications Advair Diskus 250 mcg-50 mcg inhalation powder 1, puffs, Inhalation, 2 times a day, # 180 each, Refills 1, Tot. Refills 1, Maintenance, 12/26/22 9:29:00 EST, Powder, Route to Pharmacy Electronically, NCPDP_[id number], [facility] #[id number],176.5, cm, 12/23/22 9:08:00 EST, Height Start Date: 12/26/22 Status: Ordered Albuterol (Eqv-ProAir HFA) 90 mcg/inh inhalation aerosol 2 puffs, Inhalation, Every 6 hours, PRN Wheezing/Shortness of Breath, # 1 each, 0 Refills, Maintenance, 06/24/22 16:40:00 EDT, [facility] #[id number], Partial fill upon patient request if the prescription is for a schedule II opioid drug., 2 puff... Start Date: 06/24/22 Status: Ordered Problem List Diagnosis Diagnosis Type Effective Dates Health Status Cl inical Service Informant Chest pain Discharge Diagnosis 12/23/22 Asthma with COPD Discharge Diagnosis 12/26/22 Vital Signs Most recent to oldest [Reference Range]: 1 Height 176.5 cm (12/23/22 9:08 AM) Weight 65.8 kg (12/23/22 9:08 AM) Body Mass Index [18.5-24.99 kg/m2] 21.12 kg/m2 (12/23/22 9:08 AM) Weight Obtained Via Patient/family state d (12/23/22 9:08 AM) Social History Social History Type Response Tobacco Other: 1 ppd, 42 pac k yr history. Sex EKG study * Event Display: ECG 12-Lead Authored Date: Please click on pdf link to open report * Event Display: ECG 12-Lead Authored Date: Ventricular Rate: 99 BPM Atrial Rate: 99 BPM P-R Interval: 106 ms QRS Duration: 84 ms Q-T Interval: 344 ms QTC Calculation(Bazett): 441 ms P [place]: 54 degrees R [place]: 79 degrees T [place]: 64 degrees Sinus rhythm with short SD Otherwise normal ECG When compared with ECG of 26-OCT-2008 17:35, SD interval has decreased Confirmed by SUZETTE DE LA CRUZ MD ([id number]) on 12/29/2022 11:55:25 AM [place]: SUZETTE DE LA CRUZ MD Patient Care team information Care Team Personnel Name: Mesha Arnold RN Position: [facility] RN Member Role: Primary Care Nurse Name: Michelle Hollis MD Position: [facility] Primary Care Physician Member Role: PCP Address: Address: [address] [place] [address] [address] [place] [address]- Care Team Related Persons Name: ADRIANO SALDIVAR Name: MICHAEL SMITH Address: home [address] [address]
--- OUTSIDE RECORDS SUMMARY | 2023-06-07 15:40 | XMS_ITS | Continuity of Care Document ---
Author Name Unknown Organization [facility] Adult Address [address] [place] [address]- Care Team Providers Care Wood Router Name Role Phone Bunny BOYD, Balbinanirav Primary Care Physician [phone] [place] [facility] [place] - 06/26/22 [facility] Adult [address] [place] [address]- Allergies, Adverse Reactions, Alerts No Known Allergies Immunizations Given and Recorded Vaccine Date Status Refusal Reason zoster vaccine, inactivated 01/05/20 Recorded tetanus/diphtheria/pertussis, acel(Tdap) 1 12/20/19 Given 1Result Comment: [facility]: [id number] Medications Albuterol (Eqv-ProAir HFA) 90 mcg/inh inhalation aerosol 2 puffs, Inhalation, Every 6 hours, PRN Wheezing/Shortness of Breath, # 1 each, 0 Refills, Maintenance, 06/24/22 16:40:00 EDT, [facility] #[id number], Partial fill upon patient request if the prescription is for a schedule II opioid drug., 2 puff... Start Date: 06/24/22 Status: Ordered Social History Social History Type Response Tobacco Other: 1 ppd, 40 pac k yr history. Sex
--- OUTSIDE RECORDS SUMMARY | 2023-06-07 15:40 | XMS_ITS | Continuity of Care Document ---
Author Name Unknown Organization [facility] Adult Address [address] [place] [address]- Care Team Providers Care Cognos Analyst Name Role Phone Bunny BOYD, Michelle Primary Care Physician En[place] [facility] [place] Date(s): 05/14/22 - 05/21/[address] [address]- Encounter Diagnosis Well adult exam(Discharge Diagnosis) - 05/14/22 Urinary dribbling(Discharge Diagnosis) - 05/15/22 Rib pain on right side(Discharge Diagnosis) - 05/15/22 SOB (shortness of breath) on exertion(Discharge Diagnosis) - 05/15/22 Attending Physician: Michelle Hollis MD Allergies, Adverse Reactions, Alerts No Known Allergies Immunizations Given and Recorded Vaccine Date Status Refusal Reason zoster vaccine, inactivated 01/05/20 Recorded tetanus/diphtheria/pertussis, acel(Tdap) 1 12/20/19 Given 1Result Comment: [facility]: [id number] Problem List Diagnosis Diagnosis Type Effective Dates Health Status Cl inical Service Informant Well adult exam Discharge Diagnosis 05/14/22 Urinary dribbling Discharge Diagnosis 05/15/22 Rib pain on right side Discharge Diagnosis 05/15/22 SOB (shortness of breath) on exertion Discharge Diagnosis 05/15/22 Vital Signs Most recent to oldest [Reference Range]: 1 2 3 Height 176.5 cm (05/17/22 8:17 AM) 176.5 cm (05/17/22 8:15 AM) 176.5 cm (05/14/22 2:25 PM) Weight 63.3 kg (05/17/22 8:17 AM) 63.3 kg (05/17/22 8:15 AM) 63.3 kg (05/14/22 2:25 PM) Oxygen Saturation [94-100 %] 98 % (05/14/22 2:25 PM) Pulse Rate [55-90 bpm] 80 bpm (05/14/22 2:25 PM) Body Mass Index [18.5-24.99] 20.32 (05/14/22 2:25 PM) Blood Pressure [90-138/55-84 mm Hg] 110/80mm Hg (05/14/22 2:25 PM) Temperature [96.8-100.4 DegF] 98.3 DegF (05/14/22 2:25 PM) Mode of Delivery (Oxygen) Room air (05/14/22 2:25 PM) Blood pressure sites Arm, left (05/14/22 2:25 PM) Temperature Route Oral (05/14/22 2:25 PM) Weight Obtained Via Standing scale (05/14/22 2:25 PM) Social History Social History Type Response Tobacco Other: 1 ppd, 40 pac k yr history. Sex
--- OUTSIDE RECORDS SUMMARY | 2023-06-07 15:40 | XMS_ITS | Continuity of Care Document ---
Author Name Unknown Organization [facility] Adult Address [address] [place] [address]- Care Team Providers Care White Shoe Examiner Name Role Phone Bunny BOYD, Michelle Primary Care Physician [phone] [place] [facility] [place] 07/20/20 [facility] Adult [address] [place] [address]- [facility] Attending Physician: AdmDoris gupta Admitting Physician: Admtr, Ar8 Referring Physician: Admtr, Ar8 Allergies, Adverse Reactions, Alerts Substance Reaction Severity Status NKA Active Immunizations Given and Recorded Vaccine Date Status Refusal Reason tetanus/diphtheria/pertussis, acel(Tdap) 1 12/20/19 Given 1Result Comment: [facility]: [id number] Medications NuLYTELY with Flavor Packs oral powder for reconstitution 240 mL, By Mouth, Every 10 minutes, # 1 each, 0 Refills, Maintenance, 12/24/19 14:52:00 EST, REC Powder, [facility] #[id number], test date 06/09/20, 176.5, cm, 12/20/19 10:49:00 EST, Height Start Date: 12/24/19 Status: Ordered Social History Social History Type Response Tobacco Type: Cigarettes. To bacco use times per day: 1 pack a day. Sex
--- OUTSIDE RECORDS SUMMARY | 2023-06-07 15:40 | XMS_ITS | Continuity of Care Document ---
Author Name Unknown Organization [facility] ter Address [address] [place] [address]- Care Team Providers Care Analog Circuit Designer Name Role Phone Michelle Hollis MD Primary Care Physician [phone] [place] [facility] [place] 06/[place]/[address] [address]- [facility] Attending Physician: Torsten Peace MD Admitting Physician: Torsten Peace MD Allergies, Adverse Reactions, Alerts Substance Reaction Severity Status NKA Active Immunizations Given and Recorded Vaccine Date Status Refusal Reason tetanus/diphtheria/pertussis, acel(Tdap) 1 12/20/19 Given 1Result Comment: [facility]: [id number] Medications NuLYTELY with Flavor Packs oral powder for reconstitution 240 mL, By Mouth, Every 10 minutes, # 1 each, 0 Refills, Maintenance, 12/24/19 14:52:00 EST, REC Powder, [facility] #[id number], test date 06/09/20, 176.5, cm, 12/20/19 10:49:00 EST, Height Start Date: 12/24/19 Status: Ordered Social History Social History Type Response Tobacco Type: Cigarettes. To bacco use times per day: 1 pack a day. Sex
[2023-06-07 15:44] VITALS: BP 104/68; PULSE 110; TEMP 36.3; O2SAT 97
== END 2023-06-07 16:49 | disposition home or self-care (01) ==
PROVIDERS: Visit Provider Internal Medicine
DX: R07.9 Chest pain, unspecified (principal)
CPT/HCPCS: 99214

== ENCOUNTER 2023-06-07 16:15 | Outpatient (REF) | payer OTHER, SELFPAY ==
--- NOTE | ~2023-06-07 | XR_ITS ---
EXAMINATION: XR CHEST CLINICAL INFORMATION: Chest pain COMPARISON: 03/03/[address] TECHNIQUE: 2 views of the chest were obtained. FINDINGS: Lungs are hyper aerated. No vascular congestion, consolidations or effusions. 3 mm nodular focus left mid lung likely vessel on end, no lung nodules seen on 03/03/2023 CT. The heart, mediastinum and pulmonary vessels within normal limits. Degenerative spurring and mild wedge deformities. Chronic appearing eighth posterior lateral rib deformity. XR/XR chest 2V IMPRESSION: Hyperinflation. No acute cardiopulmonary disease.
== END 2023-06-07 16:16 | disposition home or self-care (01) ==
LOC: HO.HMGCX 16:15
PROVIDERS: Visit Provider Internal Medicine
DX: R07.9 Chest pain, unspecified (principal)
CPT/HCPCS: 71046

== ENCOUNTER 2023-10-27 17:38 | Emergency (ER) | payer OTHER, SELFPAY ==
[2023-10-27 18:22] VITALS: BP 128/79; BP 138/80; PULSE 68; PULSE 83; RESP 16; TEMP 36.7; O2SAT 93; O2SAT 95; BMI 15.3
--- NOTE | 2023-10-27 18:23 | ED_ITS ---
HPI - Alcohol General Chief Complaint: ETOH/Substance Use Stated Complaint: ETOH Time Seen by Provider: 10/27/23 18:22 Source: patient, EMS and RN notes reviewed Mode of arrival: EMS Limitations: no limitations History of Present Illness HPI narrative: Patient is a 58-year-old male with history of alcohol use disorder presenting to the emergency department via EMS. Patient states that his brother called 911 because he feels the patient needs to go to detox for alcohol. Patient states that his brother attempted to bring him to detox on his own this morning but that the patient left due to the wait. Patient states he is not ready for detox at this time. States he drinks 1-3 pt of alcohol daily, last drink prior to arrival. Denies history of withdrawal seizures. He denies any chest pain, palpitations, shortness of breath. Denies cough or fevers. Denies abdominal pain, nausea, vomiting, diarrhea or constipation. Denies any other physical complaints. Denies any drug use. Denies any recent falls or other trauma. MD complaint: alcohol intoxication Last drink: Hours (ago) Amount of alcohol consumed: 1 pint vodka Chronic alcohol use: Yes Previous visits for alcohol intoxication: Yes Recent trauma: No Associated symptoms: denies other symptoms Related Data Home Medications Medication Instructions Recorded Confirmed albuterol sulfate 90 mcg/actuation inhalation 06/07/23 06/08/23 aerosol inhaler tamsulosin 0.4 mg capsule 0.4 mg PO DAILY 06/07/23 06/08/23 Previous Rx's Medication Instructions Recorded azithromycin 250 mg tablet See Rx Instructions PO .COMPLEX #6 06/07/23 (Zithromax) tabs Allergies Allergy/AdvReac Type Severity Reaction Status Date / Time No Known Allergies Allergy Verified 10/27/23 18:27 Review of Systems Review of Systems: As per HPI Yes all other systems are reviewed and are negative PMFSH Social History Social History Alcohol intake: current Alcohol intake frequency: 3 or more drinks per day Alcohol type: hard liquor Patient Tobacco Use Status: Current everyday Tobacco user Substance Use Type: Crack/Cocaine and Heroin Advance Directives: No Advance Directives Information Provided: No Physical Exam ED Vital Signs: Vital Signs - 24 hr 10/27/23 18:22 Temperature 98.1 F Pulse Rate 68 Respiratory Rate 16 Blood Pressure 128/79 Pulse Oximetry 95 Oxygen Delivery Method Room Air BMI result Body Mass Index 15.3 Course Reevaluation(s) Reevaluation #1: Patient continues to state he is not interested in detox. BrotherJamie, is here to bring patient home. Given that patient has responsible adult present, feel he is stable for discharge at this time. Advised patient he can return at any time should he changes mind about detox. Patient provided with detox resources. Patient and brother verbalized understanding of and agreement with plan. Time: 20:59 Medical Decision Making Medical Decision Making [facility] Narrative: Patient is a 58-year-old male with history of alcohol use disorder presenting to the emergency department via EMS. Patient states that his brother called 911 because he feels the patient needs to go to detox for alcohol. Patient states he is not interested in detox. On exam patient is awake, A+Ox3, VS WNL, afebrile, normal neurological exam without focal deficits, physical exam findings as above. Given reported symptoms and physical exam findings, initial differential includes alcohol use disorder. ETOH 237. Differential Diagnosis Differential Diagnoses: The differential diagnosis associated with the presentation includes As per [facility] Admission/Observation Consideration of admission/observation: Escalation of care including admission/observation considered Lab Data [facility] Lab Attestation statement: I reviewed the patient's lab results. As per [facility]. Labs: Lab Results 10/27/23 Range/Units 19:49 Ethyl Alcohol 237 mg/dL Independent Historian Clinical information obtained from an independent historian. History obtained from or confirmed by: Other (brother) External Record Review External record reviewed: Inpatient record, Office record and Outpatient record Discharge Plan Discharge Clinical Impression: Alcohol use disorder, Alcoholic intoxication Patient Disposition: Home, Self-Care Instructions: Abuse of Alcohol (DC), Alcohol Withdrawal (DC), Alcohol Use Disorder (ED) Additional Instructions: You were brought to the emergency department after a wellness check. You declined help with detox at today's visit. You were provided with resources for finding help with detox when you are ready. You were discharged home with a responsible adult. Prescriptions: No Action albuterol sulfate 90 mcg/actuation HFA aerosol inhaler inhalation tamsulosin 0.4 mg capsule 0.4 mg PO DAILY azithromycin [Zithromax] 250 mg tablet See Rx Instructions PO .COMPLEX Qty: 6 0RF Rx Instructions: take 500 mg today (day 1), then 250 mg for 4 days (days 2-5) PO
--- OUTSIDE RECORDS SUMMARY | 2023-10-27 19:00 | XMS_ITS | Continuity of Care Document ---
Author Name Unknown Organization [facility] Adult Address [address] [place] [address]- Care Team Providers Care Field Support Specialist Name Role Phone Bunny BOYD, Michelle Primary Care Physician [place] [facility] [place] 07/21/23 - 08/20/23 [facility] Adult [address] [place] [address]- Allergies, Adverse Reactions, Alerts No Known Allergies Immunizations Given and Recorded Vaccine Date Status Refusal Reason zoster vaccine, inactivated 01/05/20 Recorded tetanus/diphtheria/pertussis, acel(Tdap) 1 12/20/19 Given 1Result Comment: [facility]: [id number] Medications Advair Diskus 250 mcg-50 mcg inhalation powder 1, puffs, Inhalation, 2 times a day, # 180 each, Refills 1, Tot. Refills 1, Maintenance, 12/26/22 9:29:00 EST, Powder, Route to Pharmacy Electronically, W[facility]PDP_[id number], [facility] #[id number],176.5, cm, 12/23/22 9:08:00 EST, Height Start Date: 12/26/22 Status: Ordered Albuterol (Eqv-ProAir HFA) 90 mcg/inh inhalation aerosol 2 puffs, Inhalation, Every 6 hours, PRN Wheezing/Shortness of Breath, # 1 each, 0 Refills, Maintenance, 06/24/22 16:40:00 EDT, [facility] #[id number], Partial fill upon patient request if the prescription is for a schedule II opioid drug., 2 puff... Start Date: 06/24/22 Status: Ordered Spiriva Respimat 10 ACT 2.5 mcg/inh inhalation aerosol 2 puffs = 5 mcg, Inhalation, Daily, # 1 each, 6 Refills, Maintenance, 06/15/23 8:38:00 EDT, [facility] #[id number], Partial fill upon patient request if the prescription is for a schedule II opioid drug., 176.5, cm, 06/15/23 7:58:00 EDT, Height Start Date: 06/15/23 Status: Ordered tamsulosin 0.4 mg oral capsule TAKE ONE CAPSULE BY MOUTH DAILY Start Date: 03/31/23 Status: Ordered Problem List Condition Confirmation Course Effective Dates Status Health St atus Informant Alcoholism Confirmed Active Asthma with COPD Confirmed Active Cigarette smoker Confirmed Active Recurrent major depression Confirmed Active Social History Social History Type Response Smoking Status 10 or more cigarette s (1/2 pack or more)/day in last 30 days; Type: Cigarettes; Tobacco use times per day: 1 pack a day; Started at age: 15; entered on: 06/15/23 Sex Patient Care team information Care Team Personnel Name: Mesha Arnold RN Position: [facility] RN Member Role: Primary Care Nurse Name: Michelle Hollis MD Position: [facility] Physician - Primary Care Member Role: PCP Address: Address: [address] [place] [address] [address] [place] [address]- Care Team Related Persons Name: NATHALIE AVITIA Name: MICHAEL SMITH Address: home [address] [address]
--- OUTSIDE RECORDS SUMMARY | 2023-10-27 19:00 | XMS_ITS | Continuity of Care Document ---
Author Name Unknown Organization [facility] Adult Address [address] [place] [address]- Care Team Providers Care Prepress Technician Name Role Phone Bunny BOYD, Michelle Primary Care Physician [phone] Encounter [facility] [place] Date(s): 08/30/23 - 09/29/23 [facility] Adult [address] [place] [address]- Attending Physician: Doris Rico Admitting Physician: AdmtrDoris Referring Physician: Admtr, ArZach Allergies, Adverse Reactions, Alerts No Known Allergies Immunizations Given and Recorded Vaccine Date Status Refusal Reason zoster vaccine, inactivated 01/05/20 Recorded tetanus/diphtheria/pertussis, acel(Tdap) 1 12/20/19 Given 1Result Comment: [facility]: [id number] Medications Advair Diskus 250 mcg-50 mcg inhalation powder 1, puffs, Inhalation, 2 times a day, # 180 each, Refills 1, Tot. Refills 1, Maintenance, 12/26/22 9:29:00 EST, Powder, Route to Pharmacy Electronically, NCPDP_[id number], [facility] #[id number],176.5, cm, 12/23/22 9:08:00 EST, Height Start Date: 12/26/22 Status: Ordered Albuterol (Eqv-ProAir HFA) 90 mcg/inh inhalation aerosol 2 puffs, Inhalation, Every 6 hours, PRN Wheezing/Shortness of Breath, # 1 each, 2 Refills, Maintenance, 09/12/23 14:53:00 EDT, [facility] #[id number], Partial fill upon patient request if the prescription is for a schedule II opioid drug., 2 puff... Start Date: 09/12/23 Status: Ordered Spiriva Respimat 10 ACT 2.5 mcg/inh inhalation aerosol 2 puffs = 5 mcg, Inhalation, Daily, # 1 each, 6 Refills, Maintenance, 06/15/23 8:38:00 EDT, [facility] #[id number], Partial fill upon patient request if the [...] Care team information Care Team Personnel Name: Clayton SHORE, Mesha Position: [facility] RN Member Role: Primary Care Nurse Name: Michelle Hollis MD Position: [facility] Physician - Primary Care Member Role: PCP Address: Address: [address] [place] [address]- Care Team Related Persons Name: NATHALIE AVITIA Name: MICHAEL SMITH Address: home [address] [place] [address]
--- OUTSIDE RECORDS SUMMARY | 2023-10-27 19:00 | XMS_ITS | Continuity of Care Document ---
Author Name Unknown Organization [facility] Adult Address [address] [place] [address]- Care Team Providers Care Custom Marine Canvas Fabricator Name Role Phone Bunny BOYD, Michelle Primary Care Physician [phone] [facility] [place] Date(s): 07/06/23 - 08/05/23 [facility] Adult [address] [place] [address]- Allergies, Adverse Reactions, Alerts No Known Allergies Immunizations Given and Recorded Vaccine Date Status Refusal Reason zoster vaccine, inactivated 01/05/20 Recorded tetanus/diphtheria/pertussis, acel(Tdap) 1 12/20/19 Given 1Result Comment: [facility]: [id number] Medications Advair Diskus 250 mcg-50 mcg inhalation powder 1, puffs, Inhalation, 2 times a day, # 180 each, Refills 1, Tot. Refills 1, Maintenance, 12/26/22 9:29:00 EST, Powder, Route to Pharmacy Electronically, NEPDP_[id number], [facility] #[id number],176.5, cm, 12/23/22 9:08:00 EST, Height Start Date: 12/26/22 Status: Ordered Albuterol (Eqv-ProAir HFA) 90 mcg/inh inhalation aerosol 2 puffs, Inhalation, Every 6 hours, PRN Wheezing/Shortness of Breath, # 1 each, 0 Refills, Maintenance, 06/24/22 16:40:00 EDT, [facility] #[id number], Partial fill upon patient request if the prescription is for a schedule II opioid drug., 2 puff... Start Date: 06/24/22 Status: Ordered Nicoderm C-Q Clear 21 mg/24 hr transdermal film, extended release 1 patch, Topically, Daily, for 42 days, 21 mg for 6 weeks, 14 mg for 2 weeks and 7 mg for 2 weeks.,# 42 patch, 0 Refills, Acute 08/18/23 9:04:00 EDT, 07/07/23 9:04:00 EDT, Patch, [facility] #[id number], Partial fill upon patient request if the p... Start Date: 07/07/23 Stop Date: 08/18/23 Status: Ordered Spiriva Respimat 10 ACT 2.5 mcg/inh inhalation aerosol 2 puffs = 5 mcg, Inhalation, Daily, # 1 each, 6 Refills, Maintenance, 06/15/23 8:38:00 EDT, [facility] #[id number], Partial fill upon patient request if the [...] Team Personnel Name: Mesha Arnold RN Position: [facility] RN Member Role: Primary Care Nurse Name: Michelle Hollis MD Position: [facility] Physician - Primary Care Member Role: PCP Address: Address: [address] [place] [address] [address]rd [place] [address]- Care Team Related Persons Name: NATHALIE AVITIA Name: MICHAEL SMITH Address: home [address] [address]
--- OUTSIDE RECORDS SUMMARY | 2023-10-27 19:00 | XMS_ITS | Continuity of Care Document ---
Author Name Unknown Organization [facility] Adult Address [address] [place] [address]- Care Team Providers Care Clay Washer Name Role Phone Bunny BOYD, Michelle Primary Care Physician [facility] [id number] Date(s): 06/09/23 - 07/09/23 [facility] Adult [address] [place] [address]- Allergies, Adverse Reactions, Alerts No Known Allergies Immunizations Given and Recorded Vaccine Date Status Refusal Reason zoster vaccine, inactivated 01/05/20 Recorded tetanus/diphtheria/pertussis, acel(Tdap) 1 12/20/19 Given 1Result Comment: [facility]: [id number] Medications Advair Diskus 250 mcg-50 mcg inhalation powder 1, puffs, Inhalation, 2 times a day, # 180 each, Refills 1, Tot. Refills 1, Maintenance, 12/26/22 9:29:00 EST, Powder, Route to Pharmacy Electronically, NCPDP_[id number], [facility] #[id number],176.5, cm, 12/23/22 9:08:00 EST, Height Start Date: 12/26/22 Status: Ordered Albuterol (Eqv-ProAir HFA) 90 mcg/inh inhalation aerosol 2 puffs, Inhalation, Every 6 hours, PRN Wheezing/Shortness of Breath, # 1 each, 0 Refills, Maintenance, 06/24/22 16:40:00 EDT, [facility] #[id number], Partial fill upon patient request if the [...] 08/18/23 9:04:00 EDT, 07/07/23 9:04:00 EDT, Patch, [facility] #[id number], Partial fill upon patient request if the p... Start Date: 07/07/23 Stop Date: 08/18/23 Status: Ordered Nicoderm C-Q Clear 7 mg/24 hr transdermal film, extended release 1 patch, Topically, Daily, for 14 days, apply to skin 21 mg for 6 weeks, 14 mg for 2 weeks and 7 mgfor 2 weeks., # 14 patch, 0 Refills, Acute 07/21/23 9:05:00 EDT, 07/07/23 9:05:00 EDT, Patch, [facility] #[id number], Partial fill upon patient re... Start Date: 07/07/23 Stop Date: 07/21/23 Status: Ordered Nicoderm C-Q Clear 7 mg/24 hr transdermal film, extended release 1 patch, Topically, Daily, for 14 days, apply to skin 21 mg for 6 weeks, 14 mg for 2 weeks and 7 mgfor 2 weeks., # 14 patch, 0 Refills, Acute 07/21/23 9:05:00 EDT, 07/07/23 9:05:00 EDT, Patch, [facility] #[id number], Partial fill upon patient r... Start Date: 07/07/23 Stop Date: 07/21/23 Status: Ordered Spiriva Respimat 10 ACT 2.5 mcg/inh inhalation aerosol 2 puffs = 5 mcg, Inhalation, Daily, # 1 each, 6 Refills, Maintenance, 06/15/23 8:38:00 EDT, [facility] #[id number], Partial fill upon patient request if the [...] Team Personnel Name: Mesha Arnold RN Position: [facility] RN Member Role: Primary Care Nurse Name: Michelle Hollis MD Position: [facility] Physician - Primary Care Member Role: PCP Address: Address: [address] [place] [address]- Care Team Related Persons Name: ADRIANO SALDIVAR Name: MICHAEL SMITH Address: home [address] [address]
--- OUTSIDE RECORDS SUMMARY | 2023-10-27 19:00 | XMS_ITS | Continuity of Care Document ---
Author Name Unknown Organization [facility] Adult Address [address] [place] [address]- Care Team Providers Care Industrial Registered Nurse Name Role Phone Bunny BOYD, Michelle Primary Care Physician [facility] [id number] Date(s): 06/07/23 - 07/07/23 [facility] Adult [address] [place] [address]- Allergies, Adverse Reactions, Alerts No Known Allergies Immunizations Given and Recorded Vaccine Date Status Refusal Reason zoster vaccine, inactivated 01/05/20 Recorded tetanus/diphtheria/pertussis, acel(Tdap) 1 12/20/19 Given 1Result Comment: [facility]: [id number] Medications Advair Diskus 250 mcg-50 mcg inhalation powder 1, puffs, Inhalation, 2 times a day, # 180 each, Refills 1, Tot. Refills 1, Maintenance, 12/26/22 9:29:00 EST, Powder, Route to Pharmacy Electronically, NCPDP_ID-[id number], [facility] #[id number],176.5, cm, 12/23/22 9:08:00 EST, Height Start Date: 12/26/22 Status: Ordered Albuterol (Eqv-ProAir HFA) 90 mcg/inh inhalation aerosol 2 puffs, Inhalation, Every 6 hours, PRN Wheezing/Shortness of Breath, # 1 each, 0 Refills, Maintenance, 06/24/22 16:40:00 EDT, [facility] #[id number], Partial fill upon patient request if the [...] 08/18/23 9:04:00 EDT, 07/07/23 9:04:00 EDT, Patch, [facility] #[id number], Partial fill upon patient request if the [...] 07/21/23 9:05:00 EDT, 07/07/23 9:05:00 EDT, Patch, [facility] #[id number], Partial fill upon patient re... Start Date: 07/07/23 Stop Date: 07/21/23 Status: Ordered Nicoderm C-Q Clear 7 mg/24 hr transdermal film, extended release 1 patch, Topically, Daily, for 14 days, apply to skin 21 mg for 6 weeks, 14 mg for 2 weeks and 7 mgfor 2 weeks., # 14 patch, 0 Refills, Acute 07/21/23 9:05:00 EDT, 07/07/23 9:05:00 EDT, Patch, [facility] #[id number], Partial fill upon patient r... Start Date: 07/07/23 Stop Date: 07/21/23 Status: Ordered Spiriva Respimat 10 ACT 2.5 mcg/inh inhalation aerosol 2 puffs = 5 mcg, Inhalation, Daily, # 1 each, 6 Refills, Maintenance, 06/15/23 8:38:00 EDT, [facility] #[id number], Partial fill upon patient request if the prescription is for a schedule II opioid drug., 176.5, cm, 06/15/23 7:58:00 EDT, Height Start Date: 06/15/23 Status: Ordered tamsulosin 0.4 mg oral capsule TAKE ONE CAPSULE BY MOUTH DAILY Start Date: 5/11/23 Status: Ordered Problem List Condition Confirmation Course [...] Hollis MD Position: [facility] Physician - Primary Care Member Role: PCP Address: Address: [address] [place] [address]- Care Team Related Persons Name: ADRIANO SALDIVAR Name: MICHAEL SMITH Address: home [address] [address]
--- OUTSIDE RECORDS SUMMARY | 2023-10-27 19:00 | XMS_ITS | Continuity of Care Document ---
Author Name Unknown Organization [facility] Adult Address [address] [place] [address]- Care Team Providers Care Vending Machine Collector Name Role Phone Bunny BOYD, Michelle Primary Care Physician [id number] Date(s): 08/30/23 - 09/06/23 [facility] Adult [address] [place] [address]- Encounter Diagnosis Mass of upper lobe of right lung(Discharge Diagnosis) - 08/31/23 Attending Physician: Michelle Hollis MD Allergies, Adverse Reactions, Alerts No Known Allergies Immunizations Given and Recorded Vaccine Date Status Refusal Reason zoster vaccine, inactivated 01/05/20 Recorded tetanus/diphtheria/pertussis, acel(Tdap) 1 12/20/19 Given 1Result Comment: [facility]: [id number] Medications Advair Diskus 250 mcg-50 mcg inhalation powder 1, puffs, Inhalation, 2 times a day, # 180 each, Refills 1, Tot. Refills 1, Maintenance, 12/26/22 9:29:00 EST, Powder, Route to Pharmacy Electronically, NCPDP_ID-[id number], [facility] #[id number],176.5, cm, 12/23/22 9:08:00 EST, Height Start Date: 12/26/22 Status: Ordered Albuterol (Eqv-ProAir HFA) 90 mcg/inh inhalation aerosol 2 puffs, Inhalation, Every 6 hours, PRN Wheezing/Shortness of Breath, # 1 each, 0 Refills, Maintenance, 06/24/22 16:40:00 EDT, [facility] #[id number], Partial fill upon patient request if the prescription is for a schedule II opioid drug., 2 puff... Start Date: 06/24/22 Status: Ordered Spiriva Respimat 10 ACT 2.5 mcg/inh inhalation aerosol 2 puffs = 5 mcg, Inhalation, Daily, # 1 each, 6 Refills, Maintenance, 06/15/23 8:38:00 EDT, [facility] #[id number], Partial fill upon patient request if the [...] Dates Health Status Cl inical Service Informant Mass of upper lobe of right lung Discharge Diagnosis 08/31/23 Vital Signs Most recent to oldest [Reference Range]: 1 Height 176.5 cm (08/30/23 1:01 PM) Weight 68.5 kg (08/30/23 1:01 PM) Body Mass Index [18.5-24.99 kg/m2] 21.99 kg/m2 (08/30/23 1:01 PM) Weight Obtained Via Patient/family state d (08/30/23 1:01 PM) Social History Social History Type Response Smoking Status 10 or more cigarette s (1/2 pack or more)/day in last 30 days; Type: Cigarettes; Tobacco use times per day: 1 pack a day; Started at age: 15; entered on: 06/15/23 Sex Patient Care team information Care Team Personnel Name: Clayton SHORE, Mesha Position: [facility] RN Member Role: Primary Care Nurse Name: Michelle Hollis MD Position: [facility] Physician - Primary Care Member Role: PCP Address: Address: [address] [place] [address] [address] [place] [address]- Care Team Related Persons Name: MELODY AVITIAIS Name: MICHAEL SMITH Address: home [address] [address]
--- OUTSIDE RECORDS SUMMARY | 2023-10-27 19:00 | XMS_ITS | Continuity of Care Document ---
Author Name Unknown Organization [facility] ter Address [address] [place] [address]- Care Team Providers Care Supervisor Bottle Machines Name Role Phone Bunny BOYD, Michelle Primary Care Physician Encounter [facility] Date(s): 09/19/23 - 10/23/[address] [address] Attending Physician: Chel Lundberg NP Admitting Physician: Chel Lundberg NP Referring Physician: Chel Lundberg NP Allergies, Adverse Reactions, Alerts No Known Allergies Immunizations Given and Recorded Vaccine Date Status Refusal Reason zoster vaccine, inactivated 01/05/20 Recorded tetanus/diphtheria/pertussis, acel(Tdap) 1 12/20/19 Given 1Result Comment: [facility]: [id number] Medications Advair Diskus 250 mcg-50 mcg inhalation powder 1, puffs, Inhalation, 2 times a day, # 180 each, Refills 1, Tot. Refills 1, Maintenance, 12/26/22 9:29:00 EST, Powder, Route to Pharmacy Electronically, NCPDP_ID-[id number], [facility] #[id number],176.5, cm, 12/23/22 9:08:00 EST, Height Start Date: 12/26/22 Status: Ordered Albuterol (Eqv-ProAir HFA) 90 mcg/inh inhalation aerosol 2 puffs, Inhalation, Every 6 hours, PRN Wheezing/Shortness of Breath, # 1 each, 2 Refills, Maintenance, 09/12/23 14:53:00 EDT, [facility] #[id number], Partial fill upon patient request if the prescription is for a schedule II opioid drug., 2 puff... Start Date: 09/12/23 Status: Ordered Spiriva Respimat 10 ACT 2.5 mcg/inh inhalation aerosol 2 puffs = 5 mcg, Inhalation, Daily, # 1 each, 6 Refills, Maintenance, 06/15/23 8:38:00 EDT, [id number], Partial fill upon patient request if the [...] Name: Mesha Arnold RN Position: [facility] RN Member Role: Primary Care Nurse Name: Michelle Hollis MD Position: [facility] Physician - Primary Care Member Role: PCP Address: Address: [address] [place] [address]- Care Team Related Persons Name: NATHALIE AVITIA Name: MICHAEL SMITH Address: home [address] [place] [address]
--- OUTSIDE RECORDS SUMMARY | 2023-10-27 19:00 | XMS_ITS | Continuity of Care Document ---
Author Name Unknown Organization [facility] ter Address [address] [place] [address]- Care Team Providers Care Junior Sales Representative Name Role Phone Bunny BOYD, Michelle Primary Care Physician Encounter [facility] Date(s): 10/25/23 - 10/25/[address] [address]- Encounter Diagnosis Alcohol use(Final) - 10/25/23 Discharge Disposition: A-D/C Home Attending Physician: Olga Pugh MD Admitting Physician: Olga Pugh MD Referring Physician: Not on Staff, Referring MD Allergies, Adverse Reactions, Alerts No Known Allergies Immunizations Given and Recorded Vaccine Date Status Refusal Reason zoster vaccine, inactivated 01/05/20 Recorded tetanus/diphtheria/pertussis, acel(Tdap) 1 12/20/19 Given 1Result Comment: [facility]: [id number] Medications Advair Diskus 250 mcg-50 mcg inhalation powder 1, puffs, Inhalation, 2 times a day, # 180 each, Refills 1, Tot. Refills 1, Maintenance, 12/26/22 9:29:00 EST, Powder, Route to Pharmacy Electronically, NCPDP_ID-[id number], [facility] #[id number],176.5, cm, 12/23/22 9:08:00 EST, Height Start Date: 12/26/22 Status: Ordered Albuterol (Eqv-ProAir HFA) 90 mcg/inh inhalation aerosol 2 puffs, Inhalation, Every 6 hours, PRN Wheezing/Shortness of Breath, # 1 each, 2 Refills, Maintenance, 09/12/23 14:53:00 EDT, [facility] #[id number], Partial fill upon patient request if the prescription is for a schedule II opioid drug., 2 puff... Start Date: 09/12/23 Status: Ordered naltrexone 50 mg oral tablet 1 tablet = 50 mg, By Mouth, Daily, # 30 tablet, 0 Refills, Maintenance, 10/25/23 12:29:00 EST, Tablet, [facility] #[id number], Partial fill upon patient request if the prescription is for a schedule II opioid drug., 176.5, cm, 09/08/23 7:38:00 ED... Start Date: 10/25/23 Status: Ordered Spiriva Respimat 10 ACT 2.5 mcg/inh inhalation aerosol 2 puffs = 5 mcg, Inhalation, Daily, # 1 each, 6 Refills, Maintenance, 06/15/23 8:38:00 EDT, [facility] #[id number], Partial fill upon patient request if the [...] Confirmed Active Recurrent major depression Confirmed Active Vital Signs Most recent to oldest [Reference Range]: 1 Oxygen Saturation [94-100 %] 97 % (10/25/23 11:57 AM) Pulse Rate [55-90 bpm] 110 bpm *H* (10/25/23 11:57 AM) Blood Pressure [90-138/55-84 mm Hg] 132/ 92mm Hg (10/25/23 11:57 AM) Respiratory Rate [16-30 br/min] 16 br/mi n (10/25/23 11:57 AM) Temperature [96.8-100.4 DegF] 97.5 DegF (10/25/23 11:57 AM) Temperature Route Oral (10/25/23 11:57 AM) Social History Social History Type Response Smoking Status 10 or more cigarette s (1/2 pack or more)/day in last 30 days; Type: Cigarettes; Tobacco use times per day: 1 pack a day; Started at age: 15; entered on: 06/15/23 Sex Note * Muchisky MD, Hermila: PERFORM Event Display: Patient Education Leaflets Authored Date: [id number] Alcohol Abuse ?? [id number] Alcohol Abuse Alcoholic drinks harm you when you have too many of them. No set number of drinks means too much. Drinking that affects your life or your health is called alcohol abuse. Alcohol abuse can hurt your relationships with others. You may lose friends, a spouse, or even your job. You may be abusing alcohol if any of the following are true for you: ??? Duties at home or with child care supervisor suffer because of drinking. ??? Duties at work or in school suffer because of drinking. ??? You have missed work or school because of drinking. ??? You use alcohol while driving or using machinery. ??? You have legal problems such as arrests because of drinking. ??? You keep drinking even though it causes serious problems in your life. Health problems Alcohol abuse causes many health problems.??Sometimes this can happen after only drinking a ???little. ??The effects depend on how much you drink at one time and how often you drink. The effects also depend on how long you drink. For example, months, years, or decades.??Alcohol affects all parts of your body Brain Alcohol affects the central nervous system. It can damage parts of the brain that control your balance and gait, memory, thinking, and emotions. It can cause: ??? Memory loss ??? Blackouts ??? Depression ??? Agitation ??? Sleep problems ??? Seizures These changes may be director long term care (permanent). Heart and blood vessels Alcohol can damage heart muscle (cardiomyopathy). This can lead to: ??? Trouble breathing ??? Irregular heartbeat ??? Atrial fibrillation ??? Leg swelling ??? Heart failure Alcohol also makes the blood vessels stiff. This causes high blood pressure. All of these problems raise your risk of having a heart attack or stroke. Liver Alcohol causes fat to build up in the liver. This affects how the liver works. Alcohol also raises the risk for hepatitis. It can cause: ??? Belly (abdominal) pain ??? Belly swelling ??? Loss of appetite ??? Yellowed eyes or skin (jaundice) ??? Bleeding problems ??? Cirrhosis This can make it harder for you to fight off infections. The liver changes keep it from removing toxins in your blood that can cause brain disease (encephalopathy). This condition cause: ??? Confusion ??? Changed level of consciousness ??? Personality changes ??? Memory loss ??? Seizures, coma, and The liver changes can also cause the veins in your esophagus and stomach to become thin and swollenwith blood (varices). This can cause bleeding and vomiting of blood. Pancreas Alcohol can cause swelling (inflammation) of the pancreas (pancreatitis). This can cause belly pain, fever, and diabetes. Immune system Alcohol weakens your immune system. This makes it harder for you to fight infections and colds. It also makes it more likely for you to get pneumonia and tuberculosis. Cancer Alcohol raises the risk for several types of cancer. These include cancer of the mouth, esophagus, pharynx, larynx, liver, and breast. Sexual function Alcohol can lead to sexual problems. ?? Home care These guidelines will help you deal with alcohol abuse: ??? Admit you have a problem with alcohol. ??? Ask for help from your healthcare provider. Also ask for help from trusted family members or close friends. ??? Get help from people trained in dealing with alcohol abuse. This may be one-on-one counseling or group therapy. Or it may be an alcohol treatment program. ??? Join a self-help group for alcohol abuse such as Alcoholics Anonymous. ??? Stay away from people who abuse alcohol or tempt you to drink. ?? Follow-up care Follow up with your healthcare provider, or as advised. Contact these groups to get help: ??? Alcoholics Anonymous (AA) at www.aa.org. Or check the phone book for meetings near you. ??? National Alcohol and Substance Abuse Information Center (NASAIC) at www.addictioncarePressable.com or 490-582-1372 ??? National [place] on Alcoholism and Drug Dependence (NCADD) at www.ncadd.org or 986-IBM-PBHU (827-864-9621) ?? Call 911 Call 911 if any of these occur: ??? Trouble breathing or slow, irregular breathing ??? Chest pain ??? Sudden weakness on one side of your body or sudden trouble speaking ??? Heavy bleeding or vomiting blood ??? Very drowsy or trouble awakening ??? Fainting or loss of consciousness ??? Rapid heart rate ??? Seizure ?? When to seek medical care Call your healthcare provider right away if any of these occur:? Confusion ??? Seeing, hearing, or feeling things that aren???t there (hallucinations) ??? Pain in your upper belly that gets worse ??? Vomiting that continues, vomiting with blood, or black or tarry stools ??? Severe shakiness ?? Last Reviewed Date: 2021 ?? 0070-6039 The H2020. All rights reserved. This information is not intended as a substitute for professional medical care. Always follow your healthcare professional's instructions. ?? Patient Care team information Care Team Personnel Name: Mesha Arnold RN Position: [facility] RN Member Role: Primary Care Nurse Name: Michelle Hollis MD Position: [facility] Physician - Primary Care Member Role: PCP Address: Address: [address] [place] [address] [address] [place] [address]- Name: Kerrie Mora Position: [facility] ED RN W/OE and Tasks Member Role: Patient Care Provider Name: Hermila Crespo MD Position: [facility] Resident Member Role: ED Resident Address: Address: [address] [place] [address]- Name: Mary Walls Position: [facility] ED [facility] Name: Olga Pugh MD Position: [facility] ED Medicine MD Member Role: Admitting Physician Address: Address: [address] [place] [address]- Care Team Related Persons Name: NATHALIE AVITIA Name: MICHAEL SMITH Address: home [address] [place] [address]
--- OUTSIDE RECORDS SUMMARY | 2023-10-27 19:00 | XMS_ITS | Continuity of Care Document ---
Author Name Unknown Organization [facility] Address [address] [place] [address]- Care Team Providers Care Health Concierge Name Role Phone Bunny BOYD, Michelle Primary Care Physician Encounter [facility] Date(s): 06/15/23 - 10/05/23 [facility] [address] [place] [address] Attending Physician: Alexandre Molina MD Admitting Physician: Alexandre Molina MD Referring Physician: Michelle Hollis MD Allergies, Adverse Reactions, Alerts No Known Allergies Immunizations Given and Recorded Vaccine Date Status Refusal Reason zoster vaccine, inactivated 01/05/20 Recorded tetanus/diphtheria/pertussis, acel(Tdap) 1 12/20/19 Given 1Result Comment: [facility]: [id number] Medications Advair Diskus 250 mcg-50 mcg inhalation powder 1, puffs, Inhalation, 2 times a day, # 180 each, Refills 1, Tot. Refills 1, Maintenance, 12/26/22 9:29:00 EST, Powder, Route to Pharmacy Electronically, NCPDP_ID-[id number], [facility] #[id number],176.5, cm, 12/23/22 9:08:00 EST, Height Start Date: 12/26/22 Status: Ordered Albuterol (Eqv-ProAir HFA) 90 mcg/inh inhalation aerosol 2 puffs, Inhalation, Every 6 hours, PRN Wheezing/Shortness of Breath, # 1 each, 2 Refills, Maintenance, 09/12/23 14:53:00 EDT, [facility] #[id number], Partial fill upon patient request if the prescription is for a schedule II opioid drug., 2 puff... Start Date: 09/12/23 Status: Ordered Spiriva Respimat 10 ACT 2.5 mcg/inh inhalation aerosol 2 puffs = 5 mcg, Inhalation, Daily, # 1 each, 6 Refills, Maintenance, 06/15/23 8:38:00 EDT, [facility] #[id number], Partial fill upon patient request if the [...] Team Personnel Name: Mesha Arnold RN Position: [facility] RN Member Role: Primary Care Nurse Name: Michelle Hollis MD Position: [facility] Physician - Primary Care Member Role: PCP Address: Address: [address] [place] [address]- Care Team Related Persons Name: NATHALIE AVITIA Name: MICHAEL SMITH Address: home [address] [place] [address]
--- OUTSIDE RECORDS SUMMARY | 2023-10-27 19:00 | XMS_ITS | Continuity of Care Document ---
Author Name Unknown Organization [facility] ter Address [address] [place] [address]- Care Team Providers Care Prescription Benefit Specialist Name Role Phone Michelle Hollis MD Primary Care Physician [phone] Encounter [facility] Date(s): 06/23/23 - 07/29/[address] [address] Attending Physician: Michelle Hollis MD Admitting Physician: Michelle Hollis MD Referring Physician: Michelle Hollis MD Allergies, Adverse Reactions, Alerts No Known Allergies Immunizations Given and Recorded Vaccine Date Status Refusal Reason zoster vaccine, inactivated 01/05/20 Recorded tetanus/diphtheria/pertussis, acel(Tdap) 1 12/20/19 Given 1Result Comment: [facility]: [id number] Medications Advair Diskus 250 mcg-50 mcg inhalation powder 1, puffs, Inhalation, 2 times a day, # 180 each, Refills 1, Tot. Refills 1, Maintenance, 12/26/22 9:29:00 EST, Powder, Route to Pharmacy Electronically, NCPDP_ID-[id number], [facility] #[id number],176.5, cm, 12/23/22 9:08:00 EST, Height Start Date: 12/26/22 Status: Ordered Albuterol (Eqv-ProAir HFA) 90 mcg/inh inhalation aerosol 2 puffs, Inhalation, Every 6 hours, PRN Wheezing/Shortness of Breath, # 1 each, 0 Refills, Maintenance, 06/24/22 16:40:00 EDT, [facility] #[id number], Partial fill upon patient request if the [...] 08/18/23 9:04:00 EDT, 07/07/23 9:04:00 EDT, Patch, [facility] #[id number], Partial fill upon patient request if the p... Start Date: 07/07/23 Stop Date: 08/18/23 Status: Ordered Spiriva Respimat 10 ACT 2.5 mcg/inh inhalation aerosol 2 puffs = 5 mcg, Inhalation, Daily, # 1 each, 6 Refills, Maintenance, 06/15/23 8:38:00 EDT, [facility] #[id number], Partial fill upon patient request if the [...] Care Nurse Name: Michelle Hollis MD Position: S Physician - Primary Care Member Role: PCP Address: Address: [address] [place] [address] [address] [place] [address]- Care Team Related Persons Name: JANNA ADRIANO Name: MICHAEL SMITH Address: home [address] [place] [address]
--- OUTSIDE RECORDS SUMMARY | 2023-10-27 19:00 | XMS_ITS | Continuity of Care Document ---
Author Name Unknown Organization [facility] Address [address] [place] [address]- Care Team Providers Care Fur Polisher Name Role Phone Bunny BOYD, Michelle Primary Care Physician [place] [facility] [place]23 [place] 08/06/23 [facility] [address] [place] [address] Allergies, Adverse Reactions, Alerts No Known Allergies Immunizations Given and Recorded Vaccine Date Status Refusal Reason zoster vaccine, inactivated 01/05/20 Recorded tetanus/diphtheria/pertussis, acel(Tdap) 1 12/20/19 Given 1Result Comment: [facility]: [id number] Medications Advair Diskus 250 mcg-50 mcg inhalation powder 1, puffs, Inhalation, 2 times a day, # 180 each, Refills 1, Tot. Refills 1, Maintenance, 12/26/22 9:29:00 EST, Powder, Route to Pharmacy Electronically, ARPDP_[id number], [facility] #[id number],176.5, cm, 12/23/22 9:08:00 EST, Height Start Date: 12/26/22 Status: Ordered Albuterol (Eqv-ProAir HFA) 90 mcg/inh inhalation aerosol 2 puffs, Inhalation, Every 6 hours, PRN Wheezing/Shortness of Breath, # 1 each, 0 Refills, Maintenance, 06/24/22 16:40:00 EDT, [facility] #[id number], Partial fill upon patient request if the [...] 08/18/23 9:04:00 EDT, 07/07/23 9:04:00 EDT, Patch, [facility] #[id number], Partial fill upon patient request if the p... Start Date: 07/07/23 Stop Date: 08/18/23 Status: Ordered Spiriva Respimat 10 ACT 2.5 mcg/inh inhalation aerosol 2 puffs = 5 mcg, Inhalation, Daily, # 1 each, 6 Refills, Maintenance, 06/15/23 8:38:00 EDT, [facility] #[id number], Partial fill upon patient request if the [...] Team Personnel Name: Mesha Arnold RN Position: [facility] RN Member Role: Primary Care Nurse Name: Michelle Hollis MD Position: [facility] Physician - Primary Care Member Role: PCP Address: Address: [address] [place] [address] [address]rd [place] [address]- Care Team Related Persons Name: NATHALIE AVITIA Name: MICHAEL SMITH Address: home [address] [address]
--- OUTSIDE RECORDS SUMMARY | 2023-10-27 19:00 | XMS_ITS | Continuity of Care Document ---
Author Name Unknown Organization [facility] Adult Address [address] [place] [address]- Care Team Providers Care Referral Nurse Name Role Phone Bunny BOYD, Michelle Primary Care Physician Encounter [facility] [place] Date(s): 07/07/23 - 07/14/23 [facility] Adult [address] [place] [address]- Encounter Diagnosis Cigarette smoker(Discharge Diagnosis) - 07/07/23 Asthma with COPD(Discharge Diagnosis) - 07/07/23 Attending Physician: Brionna GILBERT, Karlie Kamara Allergies, Adverse Reactions, Alerts No Known Allergies Immunizations Given and Recorded Vaccine Date Status Refusal Reason zoster vaccine, inactivated 01/05/20 Recorded tetanus/diphtheria/pertussis, acel(Tdap) 1 12/20/19 Given 1Result Comment: [facility]: [id number] Medications Advair Diskus 250 mcg-50 mcg inhalation powder 1, puffs, Inhalation, 2 times a day, # 180 each, Refills 1, Tot. Refills 1, Maintenance, 12/26/22 9:29:00 EST, Powder, Route to Pharmacy Electronically, NCPDP_[id number], [facility] #[id number],176.5, cm, 12/23/22 9:08:00 EST, Height Start Date: 12/26/22 Status: Ordered Albuterol (Eqv-ProAir HFA) 90 mcg/inh inhalation aerosol 2 puffs, Inhalation, Every 6 hours, PRN Wheezing/Shortness of Breath, # 1 each, 0 Refills, Maintenance, 06/24/22 16:40:00 EDT, [facility] #[id number], Partial fill upon patient request if the [...] 08/18/23 9:04:00 EDT, 07/07/23 9:04:00 EDT, Patch, [facility] #[id number], Partial fill upon patient request if the [...] 07/21/23 9:05:00 EDT, 07/07/23 9:05:00 EDT, Patch, [facility] #[id number], Partial fill upon patient re... Start Date: 07/07/23 Stop Date: 07/21/23 Status: Ordered Nicoderm C-Q Clear 7 mg/24 hr transdermal film, extended release 1 patch, Topically, Daily, for 14 days, apply to skin 21 mg for 6 weeks, 14 mg for 2 weeks and 7 mgfor 2 weeks., # 14 patch, 0 Refills, Acute 07/21/23 9:05:00 EDT, 07/07/23 9:05:00 EDT, Patch, [facility] #[id number], Partial fill upon patient r... Start Date: 07/07/23 Stop Date: 07/21/23 Status: Ordered Spiriva Respimat 10 ACT 2.5 mcg/inh inhalation aerosol 2 puffs = 5 mcg, Inhalation, Daily, # 1 each, 6 Refills, Maintenance, 06/15/23 8:38:00 EDT, [facility] #[id number], Partial fill upon patient request if the [...] Dates Health Status Cl inical Service Informant Cigarette smoker Discharge Diagnosis 07/07/23 Asthma with COPD Discharge Diagnosis 07/07/23 Vital Signs Most recent to oldest [Reference Range]: 1 Height 176.5 cm (07/07/23 8:15 AM) Weight 70 kg (07/07/23 8:15 AM) Body Mass Index [18.5-24.99 kg/m2] 22.47 kg/m2 (07/07/23 8:15 AM) Weight Obtained Via Patient/family state d (07/07/23 8:15 AM) Social History Social History Type Response Smoking Status 10 or more cigarette s (1/2 pack or more)/day in last 30 days; Type: Cigarettes; Tobacco use times per day: 1 pack a day; Started at age: 15; entered on: 06/15/23 Sex Patient Care team information Care Team Personnel Name: Mesha Arnold RN Position: [facility] RN Member Role: Primary Care Nurse Name: Michelle Hollis MD Position: [facility] Physician - Primary Care Member Role: PCP Address: Address: [address] [place] [address] [address] [place] [address]- Care Team Related Persons Name: ADRIANO SALDIVAR Name: MICHAEL SMITH Address: home [address] [address]
--- OUTSIDE RECORDS SUMMARY | 2023-10-27 19:00 | XMS_ITS | Continuity of Care Document ---
Author Name Unknown Organization [facility] Adult Address [address] [place] [address]- Care Team Providers Care Service Associate Name Role Phone Bunny BOYD, Michelle Primary Care Physician [place] [facility] [place]23 [place] 08/20/23 [facility] [address] [place] [address]- Allergies, Adverse Reactions, Alerts No Known Allergies Immunizations Given and Recorded Vaccine Date Status Refusal Reason zoster vaccine, inactivated 01/05/20 Recorded tetanus/diphtheria/pertussis, acel(Tdap) 1 12/20/19 Given 1Result Comment: [facility]: [id number] Medications Advair Diskus 250 mcg-50 mcg inhalation powder 1, puffs, Inhalation, 2 times a day, # 180 each, Refills 1, Tot. Refills 1, Maintenance, 12/26/22 9:29:00 EST, Powder, Route to Pharmacy Electronically, WIPDP_[id number], [facility] #[id number],176.5, cm, 12/23/22 9:08:00 EST, Height Start Date: 12/26/22 Status: Ordered Albuterol (Eqv-ProAir HFA) 90 mcg/inh inhalation aerosol 2 puffs, Inhalation, Every 6 hours, PRN Wheezing/Shortness of Breath, # 1 each, 0 Refills, Maintenance, 06/24/22 16:40:00 EDT, [facility] #[id number], Partial fill upon patient request if the prescription is for a schedule II opioid drug., 2 puff... Start Date: 06/24/22 Status: Ordered Spiriva Respimat 10 ACT 2.5 mcg/inh inhalation aerosol 2 puffs = 5 mcg, Inhalation, Daily, # 1 each, 6 Refills, Maintenance, 06/15/23 8:38:00 EDT, [facility] #[id number], Partial fill upon patient request if the [...] Primary Care Member Role: PCP Address: Address: [address] [place] [address] [address]rd [place] [address]- Care Team Related Persons Name: NATHALIE AVITIA Name: MICHAEL SMITH Address: home [address] [address]
--- OUTSIDE RECORDS SUMMARY | 2023-10-27 19:01 | XMS_ITS | Continuity of Care Document ---
Author Name Unknown Organization [facility] Address [address] [place] [address]- Care Team Providers Care Concaving Machine Operator Name Role Phone Bunny BOYD, Michelle Primary Care Physician Encounter [facility] [place] Date(s): 09/12/23 - 10/12/23 [facility] [address] [place] [address]- Allergies, Adverse Reactions, Alerts No Known Allergies Immunizations Given and Recorded Vaccine Date Status Refusal Reason zoster vaccine, inactivated 01/05/20 Recorded tetanus/diphtheria/pertussis, acel(Tdap) 1 12/20/19 Given 1Result Comment: [facility] [place]: [id number] Medications Advair Diskus 250 mcg-50 mcg inhalation powder 1, puffs, Inhalation, 2 times a day, # 180 each, Refills 1, Tot. Refills 1, Maintenance, 12/26/22 9:29:00 EST, Powder, Route to Pharmacy Electronically, NCPDP_[id number], [facility] #[id number],176.5, cm, 12/23/22 9:08:00 EST, Height Start Date: 12/26/22 Status: Ordered Albuterol (Eqv-ProAir HFA) 90 mcg/inh inhalation aerosol 2 puffs, Inhalation, Every 6 hours, PRN Wheezing/Shortness of Breath, # 1 each, 2 Refills, Maintenance, 09/12/23 14:53:00 EDT, [facility] #[id number], Partial fill upon patient request if the prescription is for a schedule II opioid drug., 2 puff... Start Date: 09/12/23 Status: Ordered Spiriva Respimat 10 ACT 2.5 mcg/inh inhalation aerosol 2 puffs = 5 mcg, Inhalation, Daily, # 1 each, 6 Refills, Maintenance, 06/15/23 8:38:00 EDT, [facility] #[id number], Partial fill upon patient request if the [...] Mesha Arnold RN Position: [facility] RN Member Role: Primary Care Nurse Name: Michelle Hollis MD Position: [facility] Physician - Primary Care Member Role: PCP Address: Address: [address] [place] [address] 3rd [place] [address]- Care Team Related Persons Name: NATHALIE AVITIA Name: MICHAEL SMITH Address: home [address] [address]
--- OUTSIDE RECORDS SUMMARY | 2023-10-27 19:01 | XMS_ITS | Continuity of Care Document ---
Author Name Unknown Organization [facility] Adult Address [address] [place] [address]- Care Team Providers Care Therapy Assistant Name Role Phone Bunny BOYD, Michelle Primary Care Physician [phone] [facility] [place] Date(s): 07/22/23 - 08/21/23 [facility] [address] [place] [address]- Allergies, Adverse Reactions, Alerts No Known Allergies Immunizations Given and Recorded Vaccine Date Status Refusal Reason zoster vaccine, inactivated 01/05/20 Recorded tetanus/diphtheria/pertussis, acel(Tdap) 1 12/20/19 Given 1Result Comment: [facility]: [id number] Medications Advair Diskus 250 mcg-50 mcg inhalation powder 1, puffs, Inhalation, 2 times a day, # 180 each, Refills 1, Tot. Refills 1, Maintenance, 12/26/22 9:29:00 EST, Powder, Route to Pharmacy Electronically, MTPDP_[id number], [facility] #[id number],176.5, cm, 12/23/22 9:08:00 EST, Height Start Date: 12/26/22 Status: Ordered Albuterol (Eqv-ProAir HFA) 90 mcg/inh inhalation aerosol 2 puffs, Inhalation, Every 6 hours, PRN Wheezing/Shortness of Breath, # 1 each, 0 Refills, Maintenance, 06/24/22 16:40:00 EDT, [facility] #[id number], Partial fill upon patient request if the prescription is for a schedule II opioid drug., 2 puff... Start Date: 06/24/22 Status: Ordered Spiriva Respimat 10 ACT 2.5 mcg/inh inhalation aerosol 2 puffs = 5 mcg, Inhalation, Daily, # 1 each, 6 Refills, Maintenance, 06/15/23 8:38:00 EDT, [facility] #[id number], Partial fill upon patient request if the [...] Name: Mesha Arnold RN Position: [facility] RN Member Role: Primary Care Nurse Name: Michelle Hollis MD Position: [facility] Physician - Primary Care Member Role: PCP Address: Address: [address] [place] [address] [address]rd [place] [address]- Care Team Related Persons Name: NATHALIE AVITIA Name: MICHAEL SMITH Address: home [address] [address]
--- OUTSIDE RECORDS SUMMARY | 2023-10-27 19:01 | XMS_ITS | Continuity of Care Document ---
Author Name Unknown Organization [facility] Address [address] [facility], [address] Floor, [address] [place] [address]- Care Team Providers Care Acid Tester Name Role Phone Bunny BOYD, Michelle Primary Care Physician [phone] [place] [facility] [place](s[place] 09/08/23 - 10/08/23 [facility] [address] [place], [address], [address] [place] [address]- Attending Physician: Doris Rico Admitting Physician: AdmtrDoris Referring Physician: Admtr, Ar8 Allergies, Adverse Reactions, Alerts No Known Allergies Immunizations Given and Recorded Vaccine Date Status Refusal Reason zoster vaccine, inactivated 01/05/20 Recorded tetanus/diphtheria/pertussis, acel(Tdap) 1 12/20/19 Given 1Result Comment: [facility]: [id number] Medications Advair Diskus 250 mcg-50 mcg inhalation powder 1, puffs, Inhalation, 2 times a day, # 180 each, Refills 1, Tot. Refills 1, Maintenance, 12/26/22 9:29:00 EST, Powder, Route to Pharmacy Electronically, NCPDP_[id number], [facility] #[id number],176.5, cm, 12/23/22 9:08:00 EST, Height Start Date: 12/26/22 Status: Ordered Albuterol (Eqv-ProAir HFA) 90 mcg/inh inhalation aerosol 2 puffs, Inhalation, Every 6 hours, PRN Wheezing/Shortness of Breath, # 1 each, 2 Refills, Maintenance, 09/12/23 14:53:00 EDT, [facility] #[id number], Partial fill upon patient request if the prescription is for a schedule II opioid drug., 2 puff... Start Date: 09/12/23 Status: Ordered Spiriva Respimat 10 ACT 2.5 mcg/inh inhalation aerosol 2 puffs = 5 mcg, Inhalation, Daily, # 1 each, 6 Refills, Maintenance, 06/15/23 8:38:00 EDT, [id number], Partial fill upon patient request if the [...] Team Personnel Name: Mesha Arnold RN Position: [facility] RN Member Role: Primary Care Nurse Name: Michelle Hollis MD Position: [facility] Physician - Primary Care Member Role: PCP Address: Address: [address] [place] [address]- Care Team Related Persons Name: NATHALIE AVITIA Name: MICHAEL SMITH Address: home [address] [place] [address]
[2023-10-27 20:07] LABS: Ethanol 237 mg/dL
--- NOTE | 2023-10-27 21:12 | PC.NURSE ---
Patient's brother Stuart called ED to follow up on patient's disposition. Stuart, reports he called patient this afternoon around 4:00 pm to check on him and patient was intoxicated at that time, stating to Stuart that he is depressed and wants to kill himself-broad statement with no specific plan. Stuart also received phone call from patient's therapist Eloy, who stated that she has been concerned about patient being depressed and thought that patient would benefit for evaluation at ED. EMS services were contacted and patient brought to ED. Labs drawn. Ethanol level 237. Patient is alert and oriented x3, ambulates with steady gait. CIWA score 0.Patient called his brother Jamie, sober ride home who came to ED. This RN updated ED provider Esthela on concerns expressed by Stuart and Eloy. Patient denies SI. He is no in crisis per provider's evaluation. This RN re verified with ED provider plan for proceeding with discharge, ED provider feeling patient is safe to be discharged home with Jamie, his brother who is his sober ride and agreeing with disposition. Per Jamie they will file Sec 35 with his brother Usman tomorrow morning. Per ED provider's recommendations this RN called Stuart at [phone] reviewed patient's disposition and referred MD's recommendations to file [address] when patient expressing SI attempt call PD and they will section patient. ED provider is aware of concerns expressed by Stuart and proceeding with patient d/c.
[2023-10-27 21:48] VITALS: BP 130/82; PULSE 89; RESP 16; TEMP 36.7; O2SAT 98
== END 2023-10-27 21:53 | disposition home or self-care (01) ==
PROVIDERS: Registered Nurse Emergency; Emergency Provider Student in an Organized Health Care Education/Training Program
DX: F10.220 Alcohol dependence with intoxication, uncomplicated (principal); Y90.7 Blood alcohol level of 200-239 mg/100 ml; Z79.899 Other long term (current) drug therapy
CPT/HCPCS: 36415; 80307; 99284